=== PATIENT | female | born 1960 | race Hispanic/Latino ===

== ENCOUNTER 2018-06-23 07:25 | Outpatient (CLI) | payer OTHER ==
[~2018-06-23] VITALS: Ht 165.1 cm; Wt 68.9 kg
[2018-06-23 07:53] VITALS: BP 101/65
[2018-06-23 08:46] LABS: BASOPHILS % (AUTO) 0 % (0-10); EOSINOPHILS # (AUTO) 0.2 10^3/uL (0.0-0.3); EOSINOPHILS % (AUTO) 2 % (0-10); HEMATOCRIT 41 % (35-52); HEMOGLOBIN 13.5 G/DL (11.5-16.0); LYMPHOCYTES # (AUTO) 3.2 X 10^3 (1.0-4.0); LYMPHOCYTES % (AUTO) 37 % (12-44); MEAN CORPUSCULAR HEMOGLOBIN 28 PG (25-34); MEAN CORPUSCULAR HGB CONC 33 G/DL (32-36); MEAN CORPUSCULAR VOLUME 86 FL (80-99); MEAN PLATELET VOLUME 11.7 FL (7.4-10.4); MONOCYTES # (AUTO) 0.6 X 10^3 (0.0-1.0); MONOCYTES % (AUTO) 7 % (0-12); NEUTROPHILS # (AUTO) 4.7 X 10^3 (1.8-7.8); NEUTROPHILS % (AUTO) 54 % (42-75); PLATELET COUNT 219 10^3/uL (130-400); RED BLOOD COUNT 4.78 10^6/uL (4.35-5.85); RED CELL DISTRIBUTION WIDTH 14.2 % (10.0-14.5); WHITE BLOOD COUNT 8.7 10^3/uL (4.3-11.0)
[2018-06-23] MEDS ORDERED: FLUO10CA19 PO (09:02)
[2018-06-23] MEDS ORDERED: TOPI100T11 PO (09:02)
[2018-06-23 09:07] LABS: BILIRUBIN,URINE NEGATIVE (NEGATIVE); CLARITY,URINE CLEAR; COLOR,URINE YELLOW; GLUCOSE, URINE (UA) NEGATIVE (NEGATIVE); KETONES,URINE NEGATIVE (NEGATIVE); LEUKOCYTE ESTERASE ,URINE NEGATIVE (NEGATIVE); NITRITE,URINE NEGATIVE (NEGATIVE); PH,URINE 7 (5-9); PROTEIN,URINE NEGATIVE (NEGATIVE); UROBILINOGEN,URINE 1 MG/DL (NORMAL)
[2018-06-23 09:15] LABS: BACTERIA,URINE TRACE /HPF; WBC,URINE RARE /HPF
[2018-07-11] MEDS ORDERED: SULF1TAB35 PO (19:02)
[2018-07-11] MEDS ORDERED: HYDR-4226 PO (19:02)
== END 2018-06-23 08:30 | disposition home or self-care (01) ==
LOC: PREOP 07:25
PROVIDERS: ATTEND Obstetrics & Gynecology
DX: Z01.812 Encounter for preprocedural laboratory examination (principal); Z11.2 Encounter for screening for other bacterial diseases; N81.10 Cystocele, unspecified
CPT/HCPCS: 36415; 81000; 84703; 85025; 86850; 86900; 86901; 87081

== ENCOUNTER 2018-06-24 06:10 | Day surgery (SDC) | payer OTHER ==
[~2018-06-24] VITALS: Ht 165.1 cm; Wt 68.9 kg
[~2018-06-24 06:10] MED LIST: FLUO10CA19 PO; TOPI100T11 PO
[2018-06-24 06:30] VITALS: BP 99/56
[2018-06-24] MEDS ORDERED: ceFAZolin INJECTION 1,000 MG in NS (IVPB) 50 ML IV ONE (06:45)
[2018-06-24] MEDS ORDERED: metroNIDAZOLE 500MG/100ML IVPB 100 ML IV ONE (06:45)
[2018-06-24] MEDS ORDERED: fentaNYL INJECTION 100 MCG/2 ML AMP ONE ×2 (06:58→08:44)
[2018-06-24] MEDS ORDERED: MIDAZOLAM 2 MG/2 ML (VERSED) VIAL ONE (06:58)
[2018-06-24] MEDS ORDERED: LIDOCAINE PF 2% 2 ML (XYLOCAINE) VIAL ONE ×2 (06:58→07:01)
[2018-06-24] MEDS ORDERED: LACTATED RINGERS 1,000 ML IV ONE (06:58)
[2018-06-24] MEDS ORDERED: proPOfol 200 MG/20 ML (DIPRIVAN) VIAL IV ONE (06:58)
[2018-06-24] MEDS ORDERED: ROCURONIUM 10 MG/ML 5 ML SYRINGE IV ONE (06:58)
[2018-06-24] MEDS ORDERED: SEVOFLURANE (ULTANE) 15 ML INHAL SOLN ONE ×10 (06:58→10:07)
[2018-06-24] MEDS ORDERED: ONDANSETRON 4 MG/2 ML (SDV) Z0FRAN ONE (06:58)
[2018-06-24] MEDS ORDERED: DEXAMETHASONE 10 MG/ML (DECADRON) 1 ML VIAL ONE (06:59)
[2018-06-24] MEDS: LACTATED RINGERS 1,000 ML IV PRN ×5 (07:00→21:43)
[2018-06-24] MEDS ORDERED: VASOPRESSIN INJECTION 20 UNIT/ML VIAL ONE (07:01)
[2018-06-24] MEDS ORDERED: NS (IVPB) 100 ML ONE (07:01)
[2018-06-24] MEDS ORDERED: BUP/EPI 0.5% 1:200,000 (SENSORCAINE) 30 ML VIAL ONE (07:01)
--- NOTE | 2018-06-24 07:41 | Progress Note-Pre Operative ---
Pre-Operative Progress Note H&P Reviewed The H&P was reviewed, patient examined and no changes noted. Date Seen by Provider: Jun 24, 2018 Time Seen by Provider: 07:35 Date H&P Reviewed: Jun 24, 2018 Time H&P Reviewed: 07:30 Pre-Operative Diagnosis: incomplete genital prolapse, stress incontinence RICK BEAULIEU DO Jun 24, 2018 07:40
[2018-06-24] MEDS ORDERED: ESTRADIOL VAGINAL CREAM 42.5 GM (ESTRACE) VG ONE (08:40)
[2018-06-24] MEDS ORDERED: LACTATED RINGERS 0 ML IV ONE (09:20)
[2018-06-24] MEDS ORDERED: NEOSTIGMINE 1 MG/ML 5 ML SYRINGE ONE (10:03)
[2018-06-24] MEDS ORDERED: GLYCOPYRROLATE 0.2 MG/ML (ROBINUL) 2 ML VIAL ONE (10:04)
[2018-06-24] MEDS ORDERED: ANTACID SUSP 30 ML UDC (MYLANTA) PO PRN ×2 (10:15→14:15)
[2018-06-24] MEDS ORDERED: DOCUSATE SODIUM 100 MG (COLACE) CAP PO PRN (10:15)
[2018-06-24] MEDS ORDERED: SIMETHICONE 80 MG (MYLICON) CHEW PO PRN (10:15)
[2018-06-24] MEDS ORDERED: ONDANSETRON 4 MG/2 ML (SDV) Z0FRAN IV PRN (10:15)
--- NOTE | 2018-06-24 10:15 | Operative Report ---
Operative Report Date of Procedure/Surgery Jun 24, 2018 Surgeon (s) RICK BEAULIEU DO Cattle Trader (s): MARITZA Quijano Post-Operative Diagnosis Incomplete genital prolapse/uterovaginal prolapse, stress incontinence Procedure Performed RaTh, BSO, anterior colporrhaphy, perineorrhaphy, solyx PV sling Description of Procedure Anesthesia Type: General Estimated blood loss (mL): 500 Specimen(s) collected/removed uterus tubes and ovaries Description of the Procedure After informed consent was obtained, patient was taken into the operating room where general anesthetic was found to be adequate. She was prepped and draped in the usual sterile fashion in the dorsal lithotomy position. Exam under anesthesia revealed 2-3 + uterine descensus. There is a large cystocele, a gapy introitus and 2+ rectocele and > 45 degree rotation of the urethra. A Steele catheter was placed. A speculum was placed in the vagina. The cervix was visualized and the anterior lip was grasped with a sharp toothed tenaculum. The uterus was sounded and depth was approximately 6.5 centimeters. I placed the Maricruz device. And then set the Maricruz to 6.5 cm and a 3.5 cm collar was advanced over the cervix. I inserted the Maricruz without difficulty, inflating the balloon and securing it around the fornix of the cervix. The collar was then secured with sutures at 12 o'clock. Attention was then turned to the patient's abdomen. A supraumbilical incision was made about 12 mm. A Veress needle was inserted and intraabdominal placement was confirmed with a drop in pressure and the saline drop test. I then insufflated the abdomen to a maximum of 15 mmHg with warmed CO2 gas. I then placed a 12 mm trocar and then the Da Elvin camera and intraperitoneal placement was confirmed. I then determined the procedure could be continued robotically. The first robotic port was placed about 12 cm lateral to the right and left of the umbilical placement and slightly inferior. These are both 8 mm trocars. These were placed under direct visualization of the laparoscope. 0.25% Marcaine was injected prior to placement of all trocars. When all placements were confirmed, the patient was placed in steep Trendelenburg allowing adequate visualization and the robot was brought in for docking. The docking was accomplished without difficulty. A survey of the pelvis confirmed the above mentioned findings. I then took over the command of the robot utilizing the Bipolar forceps and monopolar astrid. I was able to visualize the round ligaments bilaterally and grasped them and cauterized with bipolar cautery and then cut with my astrid. At this point, I then did bilateral salpingoophorectomy. I grasped the infundibulopelvic ligaments bilaterally, transected and incised. I then moved to the uteroovarian ligaments. I sealed the vessel and transected bilaterally using the bipolar cautery and then cut with the monopolar astrid. I then moved my dissection to the posterior leaves of the broad ligament. I dissected the posterior leaves of the broad ligament off the uterine arteries skeletonizing them bilaterally. I then took a second clamp with the bipolar cautery and with the astrid, transected the vessels away from the lateral aspect to the cervical stroma. I dissected the anterior peritoneum off the lower uterine segment. I continually pushed the bladder back and I took excessively great care and I was eventually able to dissect the vesicouterine peritoneum off the lower uterine segment. I then dissected in a V fashion towards the midline between the uterosacral ligaments. This allowed me to skeletonize the uterine vessels bilaterally. The balloon on the MARICRUZ was insufflated. This allowed me to see the MARICRUZ circumferentially. I then performed a colpotomy anteriorly and then amputate with cervix away from the vaginal fornix. I then continued the colpotomy circumferentially. Once this was performed, the pharmacy innovation assistant removed the uterus through the vagina. A sponge was left in the vagina to maintain pneumoperitoneum. I then began closure of the vaginal cuff. The uterus was left in the vagina to maintain pneumoperitoneum. I closed the apices of the vaginal cuff with 2-0 Vicryl V lock sutures with a colposuspension through the uterosacral ligaments. This suspended the apices of the vaginal cuff. I extended this to the midline from both sides and overlapped the V lock sutures in the midline. an additional 2-0 Vicryl suture was used for a culdoplasty, closing off the enterocele space. Excellent closure is noted and hemostasis is achieved. All the needles were removed from the patient's abdomen. Now, the robotic instruments were removed and the robot was docked back to laparoscopy. The pelvis was irrigated. At this point I repeated an exam of the pelvis laparoscopically. The pelvis was irrigated. There was no active bleeding noted. Bilateral ureters were seen the entire time during the surgery and were peristalsing. The trocars were removed under direct visualization. The laparoscopic sites were visualized and found to be hemostatic. The trocar sites were injected with 0.25% Marcaine. I closed the 12 mm fascial incisions with a figure of 8 stitch of 0 Vicryl and then the skin incisions were closed with 4-0 Monocryl in a subcuticular fashion and then with Dermabond. Op sites were placed over the incision sites. The instruments were removed from the vagina and I noted there were no abrasions. Sponge, lap, needle and instrument counts correct times two. Attention was now turned to the vagina. The patient had been repositioned for the Anterior repair and the sling. The anterior vaginal epithelium was injected with dilute vasopressin for hydrodissection. I then made a midline incision and dissected the epithelium off the underlying fascia with the Metzenbaum scissors and then plicated the fascia in the midline reducing the cystocele. I then excised the excess vaginal epithelium and then closed the defect with 2-0 Vicryl in a continuous fashion. Now, A 1 cm incision was made in the suburethral space with a scalpel about 1.5 cm from the urethral meatus. I dissected bilaterally to the obturator membranes and then inserted the Solyx bilaterally and then tightened under the midurethra. I did a cystoscopy which was negative. There was bilateral urethral efflux of urine. I then kept 300 ml in the bladder and did a Cred. There was minimal leakage. The sling laid gently under the urethra and was not too tight. The incision was closed with 4-0 Monocryl in a running fashion. Steele was reinserted. I now repaired the rectocele. The posterior vaginal epithelium was injected with dilute vasopressin and a midline incision was made with the scalpel. I then undermined the epithelium with the Suresh scissors and then incised in the midline and dissected the vaginal epithelium off the fascia. I now repaired the rectocele with two layers of interrupted 2-0 vicryl mattress type stitches reducing the rectocele. I now incised the excess vaginal tissue and closed the defect with 2-0 vicryl in a running fashion. A large pyramidal incision was made in the perineum as a perineorrhaphy and this was closed in standard fashion. \ There was good hemostasis and the vagina was packed with Estrace cream and vaginal packing. SCDs were used frt DVT prophylaxis. Ancef and Flagyl were give preoperatively. Findings of the Procedure 2-3+ descensus, 3-4+ cystocele, 2+ rectocele Allergies and Home Medications Allergies Coded Allergies: No Known Drug Allergies (Unverified , 06/23/18) Home Medications Fluoxetine HCl 10 Mg Capsule, 10 MG PO DAILY, (Reported) Hydrocodone Bit/Acetaminophen 1 Ea Tablet, 1 EA PO Q6H PRN for PAIN-MODERATE TO SEVERE Prescribed by: RICK BEAULIEU on 06/25/18 1255 Ibuprofen 600 Mg Tablet, 600 MG PO Q6H PRN for PAIN-MILD Prescribed by: RICK BEAULIEU on 06/25/18 1255 Simethicone 80 Mg Tab.chew, 40 MG PO TID PRN for INDIGESTION Prescribed by: RICK BEAULIEU on 06/25/18 1255 Topiramate 100 Mg Tablet, 100 MG PO HS, (Reported) Patient Home Medication List Home Medication List Reviewed: Yes RICK BEAULIEU DO Jun 24, 2018 10:15
[2018-06-24] MEDS ORDERED: PHENYLEPHRINE 100 MCG/ML 10 ML (ANESTHESIA) SYR ONE (10:24)
[2018-06-24] MEDS ORDERED: ESTRADIOL 0.1 MG PATCH (CLIMARA) TD ONE (10:30)
[2018-06-24] MEDS ORDERED: HYDROmorphone 2 MG/ML VIAL (DILAUDID) IV ONE (10:30)
[2018-06-24] MEDS ORDERED: morphine INJ 10 MG/ML 1ML (SYR OR VIAL) IVP ONE (10:30)
[2018-06-24] MEDS ORDERED: ONDANSETRON 4 MG/2 ML (SDV) Z0FRAN IVP PRN (10:30)
[2018-06-24] MEDS: KETOROLAC 30 MG/ML VIAL IV PRN ×2 (10:32→20:00)
[2018-06-24 11:30] VITALS: BP 96/62
--- NOTE | 2018-06-24 11:51 | Anesthesia-General Post-Op ---
General Patient Condition Mental Status/LOC: Same as Preop Cardiovascular: Satisfactory Nausea/Vomiting: Absent Respiratory: Satisfactory Pain: Controlled Complications: Absent Post Op Complications Complications None Follow Up Care/Instructions Patient Instructions None needed. Anesthesia/Patient Condition Patient Condition Patient is doing well, no complaints, stable vital signs, no apparent adverse anesthesia problems. No complications reported per nursing. LOUIE FERNANDO CRNA Jun 24, 2018 11:51
[2018-06-24] MEDS ORDERED: HYDROmorphone 2 MG/ML VIAL (DILAUDID) IV PRN (13:30)
[2018-06-24] MEDS ORDERED: PATIENT MAY USE OWN MEDS, ALL MC SCH (13:30)
[2018-06-24 13:48] VITALS: BP 93/60
[2018-06-24] MEDS ORDERED: FLUoxetine HCL 20 MG (PROzac) CAP PO SCH (14:00)
[2018-06-24] MEDS ORDERED: CHLORASEPTIC LOZENGE MM PRN (14:15)
[2018-06-24] MEDS ORDERED: D5 LR IV SOLUTION 1,000 ML IV SCH (15:45)
[2018-06-24 17:25] VITALS: BP 104/55
[2018-06-24 20:30] VITALS: BP 102/64
[2018-06-24] MEDS ORDERED: NON-FORMULARY MEDICATION 1 EA EA (Topiramate 100 MG) PO SCH (21:00)
[2018-06-24] MEDS ORDERED: toPIRamate 100 MG (TOPAMAX) TAB PO SCH (21:00)
[2018-06-24] MEDS: HYDROcodone/APAP 7.5 MG/325 MG (LORTAB, LORCET PLUS) TABLET PO PRN (21:52)
[2018-06-25 00:30] VITALS: BP 86/49
[2018-06-25] MEDS ORDERED: IBUPROFEN 600 MG (MOTRIN) TAB PO PRN (03:00)
[2018-06-25] MEDS: HYDROcodone/APAP 7.5 MG/325 MG (LORTAB, LORCET PLUS) TABLET PO PRN (03:31)
[2018-06-25 04:01] VITALS: BP 78/44
[2018-06-25] MEDS: LACTATED RINGERS 1,000 ML IV PRN (04:19)
[2018-06-25 08:00] VITALS: BP 73/46
[2018-06-25] MEDS ORDERED: FLUoxetine HCL 10 MG (PROzac) CAPSULE/TABLET PO SCH (09:00)
[2018-06-25] MEDS ORDERED: NS 1000 ML IV BAG IV ONE (09:15)
--- NOTE | 2018-06-25 09:27 | Physician Progress Note ---
Progress Note Assessment/Plan Date Seen by Provider: Jun 25, 2018 Time Seen by Provider: 09:20 Events since last exam decreased/borderline urine output since last night. This has improved this am. will monitor for urinary retention. Encourage ambulation and advanced diet. Assessment/Plan POD #1 s/p RaTH, BSO, anterior/posterior colporrhaphy, PV sling, post op urinary retention. Plan dc home if able to void. Otherwise will teach straight cath and send home Vitals Last set of Vitals Signs Vital Signs Date Time Temp Pulse Resp B/P (MAP) Pulse Ox O2 Delivery O2 Flow Rate FiO2 06/25/18 04:01 97.7 76 16 78/44 (55) 97 06/24/18 20:30 Room Air I&O I&O Intake and Output 06/25/18 00:00 Intake Total 3310 ml Output Total 1350 ml Balance 1960 ml Intake Oral 1050 ml IV Total 2260 ml Output Urine Total 900 ml Estimated Blood Loss 450 ml RICK BEAULIEU DO Jun 25, 2018 09:27
[2018-06-25 09:46] LABS: BASOPHILS % (AUTO) 0 % (0-10); EOSINOPHILS % (AUTO) 0 % (0-10); HEMATOCRIT 27 % (35-52); LYMPHOCYTES # (AUTO) 3.7 X 10^3 (1.0-4.0); LYMPHOCYTES % (AUTO) 18 % (12-44); MEAN CORPUSCULAR HEMOGLOBIN 30 PG (25-34); MEAN CORPUSCULAR HGB CONC 33 G/DL (32-36); MEAN CORPUSCULAR VOLUME 89 FL (80-99); MEAN PLATELET VOLUME 11.7 FL (7.4-10.4); MONOCYTES # (AUTO) 1.4 X 10^3 (0.0-1.0); MONOCYTES % (AUTO) 7 % (0-12); NEUTROPHILS # (AUTO) 15.7 X 10^3 (1.8-7.8); NEUTROPHILS % (AUTO) 76 % (42-75); PLATELET COUNT 162 10^3/uL (130-400); RED BLOOD COUNT 3.04 10^6/uL (4.35-5.85); RED CELL DISTRIBUTION WIDTH 14.1 % (10.0-14.5); WHITE BLOOD COUNT 20.7 10^3/uL (4.3-11.0)
[2018-06-25 10:15] LABS: BAND NEUTROPHILS 0 %; BASOPHILS % (MANUAL) 0 %; EOSINOPHILS % (MANUAL) 0 %; LYMPHOCYTES % (MANUAL) 19 %; MONOCYTES % (MANUAL) 3 %; NEUTROPHILS % (MANUAL) 78 %; RBC MORPH NORMAL
[2018-06-25 12:00] VITALS: BP 133/68
[2018-06-25] MEDS ORDERED: SIME80TA16 PO (12:55)
[2018-06-25] MEDS ORDERED: IBUP-844 PO (12:55)
[2018-06-25] MEDS ORDERED: HYDR-34 PO (12:55)
--- NOTE | 2018-06-25 12:58 | Discharge Inst-Women's Service ---
Discharge Inst-Women's Serv Depart Medication/Instructions New, Converted or Re-Newed RX: RX on Chart Instructions nothing in the vagina no lifting over 25 lbs expect light bleeding, spotting for up to 10 days. Final Diagnosis incomplete genital prolapse stress incontinence Consults/Follow Up Additional Follow Up: Yes (1 week with Briana for post op and 10-12 weeks with briana for post op) Activity Activity: Activity as Tolerated Driving Instructions: No Driving for 1 Week Nothing Inside Vagina: No Douching, No [place], No Tampons Diet Discharge Diet: No Restrictions Symptoms to Report to DrMarilin: Swelling Increased, Bleeding Excessive, Pain Increased, Fever Over 101 Degrees F, Vaginal Bleeding Increase, Cramps in Feet or Legs, Vaginal Discharge Foul For Any Problems or Questions: Contact Your Physician Skin/Wound Care Infection Signs and Symptoms: Increased Redness, Foul Odor of Wound, Increased Drainage, Skin Itchy or Has a Rash, Increased Swelling, Temperature Above 101 F Operative Area Clean and Dry: You May Remove Bandage (3 days post op) Stitches/Valeria/Dermabond: Dermabond Bathing Instructions: RICK Matthews DO Jun 25, 2018 12:58
--- NOTE | 2018-06-25 13:57 | Anesthesia-General Post-Op ---
General Patient Condition Mental Status/LOC: Same as Preop Cardiovascular: Satisfactory Nausea/Vomiting: Absent Respiratory: Satisfactory Pain: Controlled Complications: Absent Post Op Complications Complications None Follow Up Care/Instructions Patient Instructions None needed. Anesthesia/Patient Condition Patient Condition Patient is doing well, no complaints, stable vital signs, no apparent adverse anesthesia problems. No complications reported per nursing. LOUIE FERNANDO CRNA Jun 25, 2018 13:57
[2018-07-11] MEDS ORDERED: HYDR-4226 PO (19:02)
[2018-07-11] MEDS ORDERED: SULF1TAB35 PO (19:02)
== END 2018-06-25 16:30 | disposition home or self-care (01) ==
LOC: SDC 06:10 → WS 11:23 → SDC 06-25 16:30
PROVIDERS: ATTEND Obstetrics & Gynecology
DX: N81.2 Incomplete uterovaginal prolapse (principal); N80.0 Endometriosis of uterus; D25.1 Intramural leiomyoma of uterus; N83.8 Other noninflammatory disorders of ovary, fallopian tube and broad ligament; N83.01 Follicular cyst of right ovary; N39.3 Stress incontinence (female) (male); R39.14 Feeling of incomplete bladder emptying; F17.210 Nicotine dependence, cigarettes, uncomplicated; G40.909 Epilepsy, unspecified, not intractable, without status epilepticus; Z79.899 Other long term (current) drug therapy; Z78.0 Asymptomatic menopausal state
CPT/HCPCS: 36415; 85007; 85027; 88307; 93005; 94664

== ENCOUNTER → 2018-07-11 | Emergency (ER) | payer SELFPAY ==
[~2018-07-11] VITALS: Ht 165.1 cm; Wt 68.9 kg
[~2018-07-11] MED LIST changes: +CATHETER FLUSH 10 ML SYR IV PRN; +HYDR-34 PO; +HYDR-4226 PO; +IBUP-844 PO; +IOHEXOL 350 MG/ML 100 ML (OMNIPAQUE 350) VIAL IV ONE; +KETOROLAC 30 MG/ML VIAL IVP ONE; +NS 250 ML (IVPB) BAG IV ONE; +NS IV 1000 ML 1,000 ML IV SCH; +SIME80TA16 PO; +SULF1TAB35 PO; +cefTRIAXone FOR IV USE 1,000 MG in NS (IVPB) 50 ML IV ONE; +fentaNYL INJECTION 100 MCG/2 ML AMP IVP ONE
--- NOTE | 2018-07-11 17:38 | ED Abdominal Pain ---
General Chief Complaint: Abdominal/GI Problems Stated Complaint: ABD PAIN STARTED YESTERDAY,BLOATED,CHILLS,FEVER Source of Information: Patient Exam Limitations: No Limitations History of Present Illness Date Seen by Provider: Jul 11, 2018 Time Seen by Provider: 17:35 Initial Comments To ER with left-sided suprapubic abdominal pain that began yesterday, abdominal distention, chills. She was here for a robotic assisted total hysterectomy, bilateral salpingo-oophorectomy, anterior colporrhaphy, perineorrhaphy, solyx PV sling on 06/24/18. She also reports vaginal discharge and bleeding. Last bowel movement was this morning. She has had no difficulties with eating or drinking. Severity/Quality: Moderate Location: Suprapubic Radiation: No Radiation Associated Symptoms: Fever/Chills; No Nausea/Vomiting Allergies and Home Medications Allergies Coded Allergies: No Known Drug Allergies (Unverified , 06/23/18) Home Medications Fluoxetine HCl 10 Mg Capsule, 10 MG PO DAILY, (Reported) Hydrocodone Bit/Acetaminophen 1 Ea Tablet, 1 EA PO Q6H PRN for PAIN-MODERATE TO SEVERE Prescribed by: RICK BEAULIEU on 06/25/18 1255 Hydrocodone/Acetaminophen 1 Each Tablet, 1 EACH PO Q6H PRN for PAIN-MODERATE Prescribed by: REGINO MOISE on 07/11/18 190 Ibuprofen 600 Mg Tablet, 600 MG PO Q6H PRN for PAIN-MILD Prescribed by: RICK BEAULIEU on 06/25/18 1255 Simethicone 80 Mg Tab.chew, 40 MG PO TID PRN for INDIGESTION Prescribed by: RICK BEAULIEU on 06/25/18 1255 Sulfamethoxazole/Trimethoprim 1 Each Tablet, 1 EACH PO BID Prescribed by: REGINO MOISE on 07/11/18 190 Topiramate 100 Mg Tablet, 100 MG PO HS, (Reported) Patient Home Medication List Home Medication List Reviewed: Yes Review of Systems Review of Systems Constitutional: see HPI EENTM: No Symptoms Reported Respiratory: No Symptoms Reported Cardiovascular: No Symptoms Reported Gastrointestinal: See HPI, Abdominal Pain; Denies Constipated, Denies Diarrhea , Denies Nausea Genitourinary: See HPI Musculoskeletal: no symptoms reported Skin: no symptoms reported Psychiatric/Neurological: No Symptoms Reported Endocrine: No Symptoms Reported Hematologic/Lymphatic: No Symptoms Reported Past Jjvghsu-Xxysyl-Fgwiwg Hx Patient Social History Type Used: Cigarettes Recent Foreign Travel: No Contact w/Someone Who Travel: No Recent Hopitalizations: No Seasonal Allergies Seasonal Allergies: No Past Medical History Surgeries: No Respiratory: No Cardiac: No Neurological: Yes (last seizure 3 months ago) Reproductive Disorders: Yes (genital prolapse) Genitourinary: No (genital prolapse, cystocele) Gastrointestinal: No Musculoskeletal: No Endocrine: No HEENT: No Cancer: No Psychosocial: Yes Depression Integumentary: No Blood Disorders: Yes (hx of anemia) Family Medical History Hypertension 19 MOTHER Myocardial infarction G8 BROTHER Seizure disorder G8 BROTHER Physical Exam Vital Signs Vital Signs - First Documented 07/11/18 17:40 Temp 97.2 Pulse 77 Resp 16 B/P (MAP) 119/73 (88) Pulse Ox 100 Capillary Refill : Height/Weight/BMI Height: 5'5.00" Weight: 152lbs. 0.0oz. 68.014686un; 25.3 BMI Method: General Appearance: WD/WN, no apparent distress HEENT: PERRL/EOMI, normal ENT inspection Neck: non-tender, full range of motion Respiratory: no respiratory distress, no accessory muscle use Cardiovascular: regular rate, rhythm, no murmur Gastrointestinal: normal bowel sounds, soft, tenderness (Suprapubic left. Trocar insertion sites are still glued, clean dry and intact without drainage or erythema surrounding them.) Extremities: normal range of motion, non-tender Neurologic/Psychiatric: alert, normal mood/affect, oriented x 3 Skin: normal color, warm/dry Progress/Results/Core Measures Results/Orders Lab Results Laboratory Tests Test 07/11/18 17:33 07/11/18 18:09 Range/Units White Blood Count 9.9 4.3-11.0 10^3/uL Red Blood Count 3.84 L 4.35-5.85 10^6/uL Hemoglobin 11.4 L 11.5-16.0 G/DL Hematocrit 34 L 35-52 % Mean Corpuscular Volume 89 80-99 FL Mean Corpuscular Hemoglobin 30 25-34 PG Mean Corpuscular Hemoglobin Concent 33 32-36 G/DL Red Cell Distribution Width 14.2 10.0-14.5 % Platelet Count 318 130-400 10^3/uL Mean Platelet Volume 10.8 H 7.4-10.4 FL Neutrophils (%) (Auto) 55 42-75 % Lymphocytes (%) (Auto) 32 12-44 % Monocytes (%) (Auto) 8 0-12 % Eosinophils (%) (Auto) 4 0-10 % Basophils (%) (Auto) 1 0-10 % Neutrophils # (Auto) 5.5 1.8-7.8 X 10^3 Lymphocytes # (Auto) 3.2 1.0-4.0 X 10^3 Monocytes # (Auto) 0.8 0.0-1.0 X 10^3 Eosinophils # (Auto) 0.4 H 0.0-0.3 10^3/uL Basophils # (Auto) 0.1 0.0-0.1 10^3/uL Sodium Level 141 135-145 MMOL/L Potassium Level 4.1 3.6-5.0 MMOL/L Chloride Level 109 H 98-107 MMOL/L Carbon Dioxide Level 25 21-32 MMOL/L Anion Gap 7 5-14 MMOL/L Blood Urea Nitrogen 13 7-18 MG/DL Creatinine 0.81 0.60-1.30 MG/DL Estimat Glomerular Filtration Rate > 60 BUN/Creatinine Ratio 16 Glucose Level 102 70-105 MG/DL Calcium Level 9.4 8.5-10.1 MG/DL Corrected Calcium 9.2 8.5-10.1 MG/DL Total Bilirubin 0.5 0.1-1.0 MG/DL Aspartate Amino Transf (AST/SGOT) 25 5-34 U/L Alanine Aminotransferase (ALT/SGPT) 22 0-55 U/L Alkaline Phosphatase 61 40-136 U/L Total Protein 7.5 6.4-8.2 GM/DL Albumin 4.3 3.2-4.5 GM/DL Lipase 35 8-78 U/L Urine Color YELLOW Urine Clarity VERY CLOUDY H Urine pH 8 5-9 Urine Specific [place] 1.015 L 1.016-1.022 Urine Protein 2+ H NEGATIVE Urine Glucose (UA) NEGATIVE NEGATIVE Urine Ketones NEGATIVE NEGATIVE Urine Nitrite NEGATIVE NEGATIVE Urine Bilirubin NEGATIVE NEGATIVE Urine Urobilinogen NORMAL NORMAL MG/DL Urine Leukocyte Esterase 3+ H NEGATIVE Urine RBC (Auto) 3+ H NEGATIVE Urine RBC 25-50 H /HPF Urine WBC 25-50 H /HPF Urine Squamous Epithelial Cells 5-10 /HPF Urine Crystals PRESENT H /LPF Urine Amorphous Sediment LARGE ELISEO PHOSPHATE H /LPF Urine Bacteria FEW H /HPF Urine Casts NONE /LPF Urine Mucus NEGATIVE /LPF Urine Culture Indicated YES My Orders Orders - REGINO MOISE WATER SAFETY TEACHER Cbc With Automated Diff (07/11/18 17:22) Comprehensive Metabolic Panel (07/11/18 17:22) Lipase (07/11/18 17:22) Ua Culture If Indicated (07/11/18 17:22) Iv Heplock-Insert (Order) (07/11/18 17:22) Fentanyl Injection (Sublimaze Injection (07/11/18 17:45) Ct Abdomen/Pelvis W (07/11/18 17:34) Ns Iv 1000 Ml (Sodium Chloride 0.9%) (07/11/18 17:45) Iohexol Injection (Omnipaque 350 Mg/Ml 1 (07/11/18 18:15) Sodium Chloride Flush (Catheter Flush Sy (07/11/18 18:15) Ns (Ivpb) (Sodium Chloride 0.9%) (07/11/18 18:15) Pharmacy Communication (Pharmacy Communi (07/11/18 18:07) Urine Culture (07/11/18 18:09) Ceftriaxone For Iv Use (Rocephin For I (07/11/18 18:45) Ketorolac Injection (Toradol Injection) (07/11/18 18:45) Medications Given in ED Current Medications Medications Dose Ordered Sig/Buck Route Start Time Stop Time Status Last Admin Dose Admin Ceftriaxone Sodium 1000 mg/ Sodium Chloride 50 ml @ 100 mls/hr ONCE ONCE IV 07/11/18 18:45 07/11/18 19:14 07/11/18 19:01 100 MLS/HR Fentanyl Citrate 50 mcg ONCE ONCE IVP 07/11/18 17:45 07/11/18 17:46 DC 07/11/18 18:07 50 MCG Iohexol 100 ml ONCE ONCE IV 07/11/18 18:15 07/11/18 18:16 DC 07/11/18 18:24 100 ML Ketorolac Tromethamine 30 mg ONCE ONCE IVP 07/11/18 18:45 07/11/18 18:46 DC 07/11/18 19:01 30 MG Sodium Chloride 10 ml NEEDED PRN IV 07/11/18 18:15 07/11/18 18:24 10 ML Sodium Chloride 250 ml ONCE ONCE IV 07/11/18 18:15 07/11/18 18:16 DC 07/11/18 18:24 80 ML Vital Signs/I&O 07/11/18 17:40 Temp 97.2 Pulse 77 Resp 16 B/P (MAP) 119/73 (88) Pulse Ox 100 Progress Progress Note : Progress Note NAME: FAITH RIVERA [facility] REC#: [id number] PT STATUS: REG ER : 1960 PHYSICIAN: REGINO MOISE WATER SAFETY TEACHER ADMIT DATE: 07/11/18/ER Draft Date of Exam:07/11/18 CT ABDOMEN/PELVIS W PROCEDURE: CT abdomen and pelvis with contrast. TECHNIQUE: Multiple contiguous axial images were obtained through the abdomen and pelvis after administration of intravenous contrast. INDICATION: Lower abdominal pain and vaginal discharge. FINDINGS: There is mild low density throughout the liver without focal hepatic or splenic abnormality identified. Gallbladder, pancreas, and adrenal glands are also unremarkable. There is no evidence of renal lesion. No free fluid is seen within the abdomen or pelvis and there is no evidence of organized fluid collection to suggest an abscess. Partially opacified urinary bladder is unremarkable. No vaginal fluid collection is seen. IMPRESSION: Fatty infiltration of the liver without other evidence of acute abnormality in the abdomen or pelvis. Dictated on workstation # [id number] Dict: 07/11/18 1832 Trans: 07/11/18 1857 [id number] Interpreted by: KATHY BAUM MD Electronically signed by: Departure Communication (Admissions) External pelvic exam done with Paris MONROY at the bedside. There was not an internal pelvic exam/speculum exam done. At the perineal suture line there was some small amount of purulent discharge. A culture of this was collected and sent to lab. Impression Primary Impression: Abdominal pain Additional Impression: Urinary tract infection Disposition: 01 HOME, SELF-CARE Condition: Stable Departure-Patient Inst. Decision time for Depature: 18:46 Referrals: [facility] (PCP/Family) Primary Care Physician Patient Instructions: Urinary Tract Infection, Adult (DC) Add. Discharge Instructions: 1. Pain medication as directed 2. Antibiotics as directed 3. Follow-up with your doctor next week 4. Return to ER for any worsening. All discharge instructions reviewed with patient and/or family. Voiced understanding. Scripts Sulfamethoxazole/Trimethoprim (Bactrim Ds Tablet) 1 Each Tablet 1 EACH PO BID, #10 TAB Prov: REGINO MOISE APRN 07/11/18 Hydrocodone/Acetaminophen ([place] 5-325 Tablet) 1 Each Tablet 1 EACH PO Q6H PRN for PAIN-MODERATE MDD 10, #10 TAB Prov: REGINO MOISE APRN 07/11/18 Copy Copies To 1: RICK BEAULIEU PETER J APRN Jul 11, 2018 17:38
[2018-07-11 17:44] LABS: BASOPHILS # (AUTO) 0.1 10^3/uL (0.0-0.1); BASOPHILS % (AUTO) 1 % (0-10); EOSINOPHILS # (AUTO) 0.4 10^3/uL (0.0-0.3); EOSINOPHILS % (AUTO) 4 % (0-10); HEMATOCRIT 34 % (35-52); HEMOGLOBIN 11.4 G/DL (11.5-16.0); LYMPHOCYTES # (AUTO) 3.2 X 10^3 (1.0-4.0); LYMPHOCYTES % (AUTO) 32 % (12-44); MEAN CORPUSCULAR HEMOGLOBIN 30 PG (25-34); MEAN CORPUSCULAR HGB CONC 33 G/DL (32-36); MEAN CORPUSCULAR VOLUME 89 FL (80-99); MEAN PLATELET VOLUME 10.8 FL (7.4-10.4); MONOCYTES # (AUTO) 0.8 X 10^3 (0.0-1.0); MONOCYTES % (AUTO) 8 % (0-12); NEUTROPHILS # (AUTO) 5.5 X 10^3 (1.8-7.8); NEUTROPHILS % (AUTO) 55 % (42-75); PLATELET COUNT 318 10^3/uL (130-400); RED BLOOD COUNT 3.84 10^6/uL (4.35-5.85); RED CELL DISTRIBUTION WIDTH 14.2 % (10.0-14.5); WHITE BLOOD COUNT 9.9 10^3/uL (4.3-11.0)
[2018-07-11 18:06] LABS: ALANINE AMINOTRANSFERASE 22 U/L (0-55); ALBUMIN 4.3 GM/DL (3.2-4.5); ALKALINE PHOSPHATASE 61 U/L (40-136); BILIRUBIN,TOTAL 0.5 MG/DL (0.1-1.0); BUN/CREATININE RATIO 16; CALCIUM 9.4 MG/DL (8.5-10.1); CARBON DIOXIDE 25 MMOL/L (21-32); CHLORIDE 109 MMOL/L (98-107); CREATININE SERUM 0.81 MG/DL (0.60-1.30); GFR ESTIMATED > 60; GLUCOSE 102 MG/DL (70-105); LIPASE 35 U/L (8-78); POTASSIUM 4.1 MMOL/L (3.6-5.0); SODIUM 141 MMOL/L (135-145); TOTAL PROTEIN 7.5 GM/DL (6.4-8.2)
[2018-07-11 18:15] LABS: BILIRUBIN,URINE NEGATIVE (NEGATIVE); CLARITY,URINE VERY CLOUDY; COLOR,URINE YELLOW; GLUCOSE, URINE (UA) NEGATIVE (NEGATIVE); KETONES,URINE NEGATIVE (NEGATIVE); LEUKOCYTE ESTERASE ,URINE 3+ (NEGATIVE); NITRITE,URINE NEGATIVE (NEGATIVE); PH,URINE 8 (5-9); PROTEIN,URINE 2+ (NEGATIVE); UROBILINOGEN,URINE NORMAL (NORMAL)
[2018-07-11 18:22] LABS: AMORPHOUS SEDIMENT,UR LARGE AMOR PHOSPHATE /LPF; BACTERIA,URINE FEW /HPF; RBC,URINE 25-50 /HPF; WBC,URINE 25-50 /HPF
--- NOTE | 2018-07-11 18:58 | Diagnostic Imaging Report ---
PROCEDURE: CT abdomen and pelvis with contrast. TECHNIQUE: Multiple contiguous axial images were obtained through the abdomen and pelvis after administration of intravenous contrast. INDICATION: Lower abdominal pain and vaginal discharge. FINDINGS: There is mild low density throughout the liver without focal hepatic or splenic abnormality identified. Gallbladder, pancreas, and adrenal glands are also unremarkable. There is no evidence of renal lesion. No free fluid is seen within the abdomen or pelvis and there is no evidence of organized fluid collection to suggest an abscess. Partially opacified urinary bladder is unremarkable. No vaginal fluid collection is seen. IMPRESSION: Fatty infiltration of the liver without other evidence of acute abnormality in the abdomen or pelvis. Dictated by: Dictated on workstation # [id number]
[2018-07-11] MEDS: RX-HYDROCODONE/APAP 5/325 MG #4 TAB PK PO PRN (19:47)
[2018-07-11 19:48] VITALS: BP 120/75
== END | disposition home or self-care (01) ==
LOC: EDUNIT# 17:16 → ER 17:18
DX: N39.0 Urinary tract infection, site not specified (principal); F32.9 Major depressive disorder, single episode, unspecified; G40.909 Epilepsy, unspecified, not intractable, without status epilepticus; Z82.49 Family history of ischemic heart disease and other diseases of the circulatory system; Z87.448 Personal history of other diseases of urinary system; Z90.710 Acquired absence of both cervix and uterus
CPT/HCPCS: 36415; 74177; 80053; 81000; 83690; 85025; 87070; 87088; 87205

== ENCOUNTER 2021-01-19 09:29 | Emergency (ER) | payer SELFPAY ==
[~2021-01-19] VITALS: Ht 172.7 cm; Wt 74.0 kg
[~2021-01-19 09:29] MED LIST changes: -CATHETER FLUSH 10 ML SYR IV PRN; -FLUO10CA19 PO; +FLUO10CA31 PO; -IOHEXOL 350 MG/ML 100 ML (OMNIPAQUE 350) VIAL IV ONE; -KETOROLAC 30 MG/ML VIAL IVP ONE; -NS 250 ML (IVPB) BAG IV ONE; -NS IV 1000 ML 1,000 ML IV SCH; -cefTRIAXone FOR IV USE 1,000 MG in NS (IVPB) 50 ML IV ONE; -fentaNYL INJECTION 100 MCG/2 ML AMP IVP ONE
--- NOTE | 2021-01-19 09:53 | ED Chest Pain ---
General Chief Complaint: Chest Pain Stated Complaint: ABNORMAL EKG Source: patient, family Exam Limitations: language barrier (Patient's daughter acts as science interpreter) History of Present Illness Date Seen by Provider: Jan 19, 2021 Time Seen by Provider: 09:30 Initial Comments Patient is a 60-year-old female who presents to the emergency department this morning by private vehicle with a chief complaint of left-sided chest pain. Patient reportedly has had chest pain for 1 week. It is nonradiating however she does complain of a little numbness to her left arm and shoulder. She reportedly has history of a brother who from a heart attack at less than 50 years of age. Patient has no past medical history, does not take any medications. Patient occasionally smokes cigarettes. She denies nausea with the chest pain. She is slightly short of breath. No diaphoresis. Pain is made worse with exertion and with deep breath. According to the daughter the patient states that the pain has been present for 1 week constantly. Nothing makes the pain any better. She has not taken any med ications for the pain today. Reportedly the patient went to [facility] on Saturday where she had an EKG and laboratory studies drawn. The family was called today secondary to the patient's total CK being somewhat elevated and she was advised to come to the emergency department. She denies any recent illnesses such as fevers, chills, cough or congestion. No GI or complaints. Patient appears to be in no acute distress at this time. All other review of systems reviewed and negative except as stated above. Timing/Duration: 1 week, constant Severity/Quality: moderate (Currently rated at "6") Location: substernal Radiation: arms, shoulders (Left arm and shoulder) Activities at Onset: none Prior CP/Workup: no prior cardiac workup ASA po MESS ATTENDANT: No NTG SL MESS ATTENDANT: No Associated Symptoms: No back pain, No fever/chills; shortness of breath Allergies and Home Medications Allergies Coded Allergies: No Known Drug Allergies (Unverified , 06/23/18) Home Medications Fluoxetine HCl 10 Mg Capsule, 10 MG PO DAILY, (Reported) Hydrocodone Bit/Acetaminophen 1 Ea Tablet, 1 EA PO Q6H PRN for PAIN-MODERATE TO SEVERE Prescribed by: RICK BEAULIEU on 06/25/18 1255 Hydrocodone/Acetaminophen 1 Each Tablet, 1 EACH PO Q6H PRN for PAIN-MODERATE Prescribed by: REGINO MOISE on 07/11/181901 Ibuprofen 600 Mg Tablet, 600 MG PO Q6H PRN for PAIN-MILD Prescribed by: RICK BEAULIEU on 06/25/18 125 Simethicone 80 Mg Tab.chew, 40 MG PO TID PRN for INDIGESTION Prescribed by: RICK BEAULIEU on 06/25/18 125 Sulfamethoxazole/Trimethoprim 1 Each Tablet, 1 EACH PO BID Prescribed by: REGINO MOISE on 07/11/181901 Topiramate 100 Mg Tablet, 100 MG PO HS, (Reported) Patient Home Medication List Home Medication List Reviewed: Yes Review of Systems Review of Systems Constitutional: see HPI EENTM: No Symptoms Reported Cardiovascular: Chest Pain Gastrointestinal: No Symptoms Reported Genitourinary: No Symptoms Reported Musculoskeletal: no symptoms reported Skin: no symptoms reported All Other Systems Reviewed Negative Unless Noted: Yes Past Mobzgzt-Qkycyt-Bshado Hx Patient Social History Type Used: Cigarettes Recent Hopitalizations: No Seasonal Allergies Seasonal Allergies: No Past Medical History Surgeries: No Bladder Surgery, Hysterectomy Respiratory: No Cardiac: Yes Coronary Artery Disease, Hypotension Neurological: Yes (last seizure 3 months ago) Seizure Disorder Reproductive Disorders: Yes (genital prolapse) Genitourinary: No (genital prolapse, cystocele) Gastrointestinal: No Musculoskeletal: No Endocrine: No HEENT: No Cancer: No Psychosocial: Yes Depression Integumentary: No Blood Disorders: Yes (hx of anemia) Family Medical History Hypertension 19 MOTHER Myocardial infarction G8 BROTHER Seizure disorder G8 BROTHER Physical Exam Vital Signs Vital Signs - First Documented 01/19/21 09:33 Temp 35.0 Pulse 75 Resp 18 B/P (MAP) 152/85 (107) Pulse Ox 99 O2 Delivery Room Air Capillary Refill : Height, Weight, BMI Height: 5'5.00" Weight: 152lbs. 0.0oz. [id number]; 25.3 BMI Method:Stated General Appearance: No Apparent Distress, WD/WN HEENT: PERRL/EOMI Neck: Normal Inspection Respiratory: Lungs Clear, Normal Breath Sounds, No Accessory Muscle Use, No Respiratory Distress Cardiovascular: Regular Rate, Rhythm, No Murmur Gastrointestinal: Normal Bowel Sounds, Non Tender, Soft Extremity: Normal Inspection, Normal Range of Motion, Non Tender, No Pedal Edema Neurologic/Psychiatric: Alert, Oriented x3, No Motor/Sensory Deficits, Normal Mood/Affect Skin: Normal Color, Warm/Dry Progress/Results/Core Measures Results/Orders Lab Results Laboratory Tests Test 01/19/21 09:46 Range/Units White Blood Count 8.1 4.3-11.0 10^3/uL Red Blood Count 4.94 3.80-5.11 10^6/uL Hemoglobin 14.3 11.5-16.0 g/dL Hematocrit 44 35-52 % Mean Corpuscular Volume 89 80-99 fL Mean Corpuscular Hemoglobin 29 25-34 pg Mean Corpuscular Hemoglobin Concent 33 32-36 g/dL Red Cell Distribution Width 14.1 10.0-14.5 % Platelet Count 223 130-400 10^3/uL Mean Platelet Volume 11.2 9.0-12.2 fL Immature Granulocyte % (Auto) 0 % Neutrophils (%) (Auto) 62 42-75 % Lymphocytes (%) (Auto) 22 12-44 % Monocytes (%) (Auto) 11 0-12 % Eosinophils (%) (Auto) 5 0-10 % Basophils (%) (Auto) 1 0-10 % Neutrophils # (Auto) 5.0 1.8-7.8 10^3/uL Lymphocytes # (Auto) 1.8 1.0-4.0 10^3/uL Monocytes # (Auto) 0.9 0.0-1.0 10^3/uL Eosinophils # (Auto) 0.4 H 0.0-0.3 10^3/uL Basophils # (Auto) 0.0 0.0-0.1 10^3/uL Immature Granulocyte # (Auto) 0.0 0.0-0.1 10^3/uL Sodium Level 143 135-145 MMOL/L Potassium Level 3.8 3.6-5.0 MMOL/L Chloride Level 105 98-107 MMOL/L Carbon Dioxide Level 25 21-32 MMOL/L Anion Gap 13 5-14 MMOL/L Blood Urea Nitrogen 7 7-18 MG/DL Creatinine 0.78 0.60-1.30 MG/DL Estimat Glomerular Filtration Rate > 60 BUN/Creatinine Ratio 9 Glucose Level 95 70-105 MG/DL Calcium Level 9.5 8.5-10.1 MG/DL Total Creatine Kinase 216 H 29-168 U/L Creatine Kinase MB 0.7 <6.6 NG/ML Troponin I < 0.028 <0.028 NG/ML My Orders Orders - COLUMBA THOMAS MD Ed Iv/Invasive Line Start (01/19/21 09:53) Cbc With Automated Diff (01/19/21 09:53) Basic Metabolic Panel (01/19/21 09:53) Creatine Kinase (01/19/21 09:53) Creatine Kinase Mb (01/19/21 09:53) Troponin I (01/19/21 09:53) Ekg Tracing (01/19/21 09:53) Chest 1 View, Ap/Pa Only (01/19/21 09:53) Aspirin Chewable Tablet (Baby Aspirin Ch (01/20/21 09:00) Aspirin Chewable Tablet (Baby Aspirin Ch (01/19/21 09:54) Ketorolac Injection (Toradol Injection) (01/19/21 10:30) Medications Given in ED Current Medications Medications Dose Ordered Sig/Buck Route Start Time Stop Time Status Last Admin Dose Admin Ketorolac Tromethamine 15 mg ONCE ONCE IVP 01/19/21 10:30 01/19/21 10:31 DC 01/19/21 10:45 15 MG Vital Signs/I&O 01/19/21 09:33 Temp 35.0 Pulse 75 Resp 18 B/P (MAP) 152/85 (107) Pulse Ox 99 O2 Delivery Room Air Progress Progress Note : Time: 10:50 Progress Note Patient seen and examined, 60-year-old female with a chief complaint of chest pain, daughter is used as science interpreter as the patient is Bulgarian-speaking. Evaluation today includes a physical exam, CBC, BMP, cardiac enzyme profile, EKG and chest x-ray. Patient has slightly to moderately suspicious story for cardiac disease. She has risk factors of her brother with cardiac disease and dying under the age of 50 from an LA as well as a off-and-on smoking history. Her initial troponin is negative. This places her heart score at a maximum of 3. This keeps her in the low risk range for acute coronary event. She is scheduled on the for an outpatient stress test to follow-up with cardiology. Patient is treated with 324 mg of aspirin here in the emergency department as well as 15 mg of Toradol. Patient is advised on discharge to take Tylenol and/or ibuprofen as needed for pain. She is given good return precautions which are to return if the chest pain worsens or is not associated with any shortness of breath nausea or sweating. She verbalized understanding. All questions were sought and answered. Patient is stable for discharge. Initial ECG Impression Date: Jan 19, 2021 Initial ECG Impression Time: 09:39 Initial ECG Rate: 69 Initial ECG Rhythm: Normal Sinus Initial ECG Intervals: Normal Initial ECG Impression: Normal Diagnostic Imaging Diagonstic Imaging: Xray Plain Films/CT/US/NM/MRI: chest Comments [facility]. [place], [place] NAME: FAITH RIVERA [facility] REC#: [id number] PT STATUS: REG ER : 1960 PHYSICIAN: COLUMBA THOMAS MD ADMIT DATE: 01/19/21/ER Draft Date of Exam:01/19/21 CHEST 1 VIEW, AP/PA ONLY INDICATION: Chest pain EXAM: Portable chest at 10:09 AM FINDINGS: The heart size and pulmonary vascularity are normal. The lungs are clear. There are no effusions or pneumothoraces. IMPRESSION: Negative chest. Dictated on workstation # [id number] Dict: 01/19/21 1007 Trans: 01/19/21 1008 [facility] [id number] Interpreted by: MAYTE SORIANO MD Electronically signed by: Departure Impression Primary Impression: Chest pain Qualified Codes: R07.9 - Chest pain, unspecified Disposition: 01 HOME, SELF-CARE Condition: Stable Departure-Patient Inst. Decision time for Depature: 10:52 Referrals: [facility] (PCP/Family) Primary Care Physician Patient Instructions: Chest Pain That Is Not Caused by the Heart (DC) Add. Discharge Instructions: Come back to the Emergency Department if you have worsening chest pain or if you have nausea, sweating and or shortness of breath with the pain. Take a baby aspirin (81mg) daily. Try and stop smoking completely for the good of your health. Keep your appointment for your stress test. Follow up with [facility] as scheduled. COLUMBA THOMAS MD Jan 19, 2021 09:53
[2021-01-19] MEDS ORDERED: ASPIRIN 81 MG CHEW (CHILDREN'S ASA) ONE (09:54)
[2021-01-19 09:59] LABS: BASOPHILS % (AUTO) 1 % (0-10); EOSINOPHILS # (AUTO) 0.4 10^3/uL (0.0-0.3); EOSINOPHILS % (AUTO) 5 % (0-10); HEMATOCRIT 44 % (35-52); HEMOGLOBIN 14.3 g/dL (11.5-16.0); LYMPHOCYTES # (AUTO) 1.8 10^3/uL (1.0-4.0); LYMPHOCYTES % (AUTO) 22 % (12-44); MEAN CORPUSCULAR HEMOGLOBIN 29 pg (25-34); MEAN CORPUSCULAR HGB CONC 33 g/dL (32-36); MEAN CORPUSCULAR VOLUME 89 fL (80-99); MEAN PLATELET VOLUME 11.2 fL (9.0-12.2); MONOCYTES # (AUTO) 0.9 10^3/uL (0.0-1.0); MONOCYTES % (AUTO) 11 % (0-12); NEUTROPHILS % (AUTO) 62 % (42-75); PLATELET COUNT 223 10^3/uL (130-400); WHITE BLOOD COUNT 8.1 10^3/uL (4.3-11.0)
[2021-01-19 10:08] LABS: CHLORIDE 105 MMOL/L (98-107); POTASSIUM 3.8 MMOL/L (3.6-5.0); SODIUM 143 MMOL/L (135-145)
--- NOTE | 2021-01-19 10:08 | Diagnostic Imaging Report ---
INDICATION: Chest pain EXAM: Portable chest at 10:09 AM FINDINGS: The heart size and pulmonary vascularity are normal. The lungs are clear. There are no effusions or pneumothoraces. IMPRESSION: Negative chest. Dictated by: Dictated on workstation # [id number]
[2021-01-19 10:09] LABS: CALCIUM 9.5 MG/DL (8.5-10.1)
[2021-01-19 10:10] LABS: GLUCOSE 95 MG/DL (70-105)
[2021-01-19 10:11] LABS: CARBON DIOXIDE 25 MMOL/L (21-32)
[2021-01-19 10:14] LABS: CREATININE SERUM 0.78 MG/DL (0.60-1.30); GFR ESTIMATED > 60
[2021-01-19 10:15] LABS: BUN/CREATININE RATIO 9
[2021-01-19 10:16] LABS: CREATINE KINASE 216 U/L (29-168)
[2021-01-19 10:22] LABS: CREATINE KINASE MB 0.7 NG/ML (<6.6)
[2021-01-19] MEDS ORDERED: KETOROLAC 30 MG/ML VIAL IVP ONE (10:30)
[2021-01-19 11:12] VITALS: BP 137/78
[2021-01-20] MEDS ORDERED: ASPIRIN 81 MG CHEW (CHILDREN'S ASA) PO SCH (09:00)
== END 2021-01-19 11:08 | disposition home or self-care (01) ==
LOC: EDUNIT# 09:29 → ER 09:31
DX: R07.89 Other chest pain (principal); I25.10 Atherosclerotic heart disease of native coronary artery without angina pectoris; G40.909 Epilepsy, unspecified, not intractable, without status epilepticus; F32.9 Major depressive disorder, single episode, unspecified
CPT/HCPCS: 36415; 71045; 80048; 82550; 82553; 84484; 85025; 93005

== ENCOUNTER → 2021-03-06 | Outpatient (CLI) | payer OTHER ==
[2021-03-06 10:44] VITALS: BP 123/80
--- NOTE | 2021-03-06 12:12 | Cardiology Stress Test Report ---
Stress Test Report Date of Procedure/Referring: Date of Procedure: March 06, 2021 PCP Cirilo Krueger DO Admitting Physician Center/[facility] Indications: CP Baseline Heart Rate: 71 Baseline Blood Pressure: Blood Pressure Systolic: 123 Blood Pressure Diastolic: 80 Baseline EKG: Baseline EKG: NSR Summary/Conclusion: Summary: In summary, the patient started exercising with a baseline heart rate, blood pressure and EKG mentioned above Patient was able to exercise for a total of 6 minutes on Kar protocol, METs 7.3 Maximum heart rate 138 Maximum blood pressure 170/79 Stress EKG, Minimal nondiagnostic changes Recovery EKG , Return to baseline Conclusion: 1. Good exercise tolerance for a total of 6 minutes on Kar protocol, 7.3 METs, achieving 85 percent of maximum expected heart rate 2. Minimal nondiagnostic EKG changes with exercise returned to baseline during recovery 3. No arrhythmia was noted TODD ESQUEDA MD March 06, 2021 12:12
== END ==
LOC: CARD 09:41
PROVIDERS: ATTEND Pediatrics
DX: R07.89 Other chest pain (principal)
CPT/HCPCS: 93017

== ENCOUNTER 2022-03-10 10:51 | Emergency (ER) | payer SELFPAY ==
[~2022-03-10] VITALS: Ht 162 cm; Wt 70.0 kg
[~2022-03-10 10:51] MED LIST changes: -FLUO10CA31 PO; +FLUO10CA33 PO; -SULF1TAB35 PO; +SULF1TAB38 PO
[2022-03-10 11:10] VITALS: BP 138/78
--- NOTE | 2022-03-10 11:29 | ED Abdominal Pain ---
General Chief Complaint: Rect Problems Stated Complaint: RECTAL BLEEDING - FEVER Source of Information: Patient Exam Limitations: Language Barrier History of Present Illness Date Seen by Provider: March 10, 2022 Time Seen by Provider: 11:24 Initial Comments Patient is a speaking 61-year-old female presents ED with rectal bleedi ng since November. This appears to be intermittent. She has bright red blood with wiping as well with bowel movements. Difficulty obtaining history secondary to her language barrier. Corduroy Cutter Operator was used. She reports some itching around her rectum and noticed a "bump" that comes and goes. She reports some mild rectal discomfort. She noticed bright red blood with wiping. She states that she has been evaluated by her primary care physician and states this is not a hemorrhoid. She noted passing of rectal blood clots. No history of cancer, night sweats, weight loss, fever. Denies of any abdominal pain vomiting or history of constipation. Has been using Preparation H without much improvement. Patient reports normal urinary symptoms without chest pain, cough or shortness of breath. She also reports right posterior leg swelling with pain radiating down into her leg. Denies of any low back pain, trauma. No history of DVT or currently on anticoagulants. Denies of any recent travels or surgeries. Denies history of any hemia Allergies and Home Medications Allergies Coded Allergies: No Known Drug Allergies (Unverified , 06/23/18) Patient Home Medication List Home Medication List Reviewed: Yes Fluoxetine HCl (Fluoxetine HCl) 10 Mg Capsule, 10 MG PO DAILY, (Reported) Entered as Reported by: ÁNGEL ROBLES on 06/23/18 09 Hydrocodone Bit/Acetaminophen (Lortab 7.5 Mg Tablet) 1 Ea Tablet, 1 EA PO Q6H PRN for PAIN-MODERATE TO SEVERE Prescribed by: RICK BEAULIEU on 06/25/18 1255 Hydrocodone/Acetaminophen (Hydrocodone/Acetaminophen 5 MG/325 MG TAB) 1 Each Tablet, 1 EACH PO Q6H PRN for PAIN-MODERATE Prescribed by: REGINO MOISE on 07/11/18 190 Ibuprofen (Ibu) 600 Mg Tablet, 600 MG PO Q6H PRN for PAIN-MILD Prescribed by: RICK BEAULIEU on 06/25/18 1255 Simethicone (Simethicone) 80 Mg Tab.chew, 40 MG PO TID PRN for INDIGESTION Prescribed by: RICK BEAULIEU on 06/25/18 1255 Sulfamethoxazole/Trimethoprim (Bactrim Ds Tablet) 1 Each Tablet, 1 EACH PO BID Prescribed by: REGINO MOISE on 07/11/18 1902 Topiramate (Topiramate) 100 Mg Tablet, 100 MG PO HS, (Reported) Entered as Reported by: ÁNGEL ROBLES on 06/23/18 0902 Review of Systems Review of Systems Constitutional: No chills, No diaphoresis, No malaise, No weakness EENTM: No Eye Pain, No Mouth Pain, No Mouth Swelling Respiratory: Denies Cough, Denies Shortness of Air, Denies SOA at Rest Cardiovascular: Denies Chest Pain, Denies Edema Gastrointestinal: Denies Abdominal Pain, Denies Diarrhea, Denies Nausea; Rectal Bleeding Genitourinary: Denies Burning, Denies Discharge Musculoskeletal: No back pain, No joint pain Skin: No change in color, No change in hair/nails Psychiatric/Neurological: Denies Anxiety Hematologic/Lymphatic: Denies Anemia All Other Systems Reviewed Negative Unless Noted: Yes Past Cohywxo-Dcjomt-Ogonue Hx Seasonal Allergies Seasonal Allergies: No Past Medical History Surgeries: No Bladder Surgery, Hysterectomy Respiratory: No Cardiac: Yes Coronary Artery Disease, Hypotension Neurological: Yes (last seizure 3 months ago) Seizure Disorder Reproductive Disorders: Yes (genital prolapse) Genitourinary: No (genital prolapse, cystocele) Gastrointestinal: No Musculoskeletal: No Endocrine: No HEENT: No Cancer: No Psychosocial: Yes Depression Integumentary: No Blood Disorders: Yes (hx of anemia) Family Medical History Hypertension 19 MOTHER Myocardial infarction G8 BROTHER Seizure disorder G8 BROTHER Physical Exam Vital Signs Vital Signs - First Documented 03/10/22 11:10 Temp 35.2 Pulse 75 Resp 16 B/P (MAP) 138/78 (98) Pulse Ox 100 O2 Delivery Room Air Capillary Refill : Height/Weight/BMI Height: 5'5.00" Weight: 152lbs. 0.0oz. 68.447842bw; 24.00 BMI Method:Stated General Appearance: WD/WN, no apparent distress HEENT: PERRL/EOMI, normal ENT inspection, TMs normal, pharynx normal Neck: non-tender, full range of motion, supple, normal inspection Respiratory: chest non-tender, lungs clear, normal breath sounds, no respiratory distress, no accessory muscle use Cardiovascular: regular rate, rhythm, no edema, no gallop, no JVD Gastrointestinal: normal bowel sounds, non tender, soft, no organomegaly, no pulsatile mass Rectal: No decreased tone, No hemorrhoids, No tenderness Extremities: normal range of motion, no pedal edema, no calf tenderness, swelling (right posterior leg), other (Varicose veins noted to the right posterior leg. No erythema, warmth or induration. Normal active range of motion the right extremity.) Back: normal inspection, no CVA tenderness, no vertebral tenderness Neurologic/Psychiatric: can filler II-XII nml as tested, no motor/sensory deficits, alert, normal mood/affect, oriented x 3 Skin: normal color, warm/dry Progress/Results/Core Measures Results/Orders Lab Results Laboratory Tests Test 03/10/22 11:28 Range/Units White Blood Count 8.1 4.3-11.0 10^3/uL Red Blood Count 5.04 3.80-5.11 10^6/uL Hemoglobin 14.4 11.5-16.0 g/dL Hematocrit 44 35-52 % Mean Corpuscular Volume 87 80-99 fL Mean Corpuscular Hemoglobin 29 25-34 pg Mean Corpuscular Hemoglobin Concent 33 32-36 g/dL Red Cell Distribution Width 13.8 10.0-14.5 % Platelet Count 242 130-400 10^3/uL Mean Platelet Volume 11.1 9.0-12.2 fL Immature Granulocyte % (Auto) 0 % Neutrophils (%) (Auto) 45 42-75 % Lymphocytes (%) (Auto) 45 H 12-44 % Monocytes (%) (Auto) 7 0-12 % Eosinophils (%) (Auto) 2 0-10 % Basophils (%) (Auto) 1 0-10 % Neutrophils # (Auto) 3.7 1.8-7.8 10^3/uL Lymphocytes # (Auto) 3.6 1.0-4.0 10^3/uL Monocytes # (Auto) 0.6 0.0-1.0 10^3/uL Eosinophils # (Auto) 0.2 0.0-0.3 10^3/uL Basophils # (Auto) 0.0 0.0-0.1 10^3/uL Immature Granulocyte # (Auto) 0.0 0.0-0.1 10^3/uL Prothrombin Time 12.7 12.2-14.7 SEC INR Comment 0.9 0.8-1.4 Activated Partial Thromboplast Time 31 24-35 SEC Sodium Level 140 135-145 MMOL/L Potassium Level 4.0 3.6-5.0 MMOL/L Chloride Level 104 98-107 MMOL/L Carbon Dioxide Level 23 21-32 MMOL/L Anion Gap 13 5-14 MMOL/L Blood Urea Nitrogen 8 7-18 MG/DL Creatinine 0.68 0.60-1.30 MG/DL Estimat Glomerular Filtration Rate 100 BUN/Creatinine Ratio 12 Glucose Level 94 70-105 MG/DL Calcium Level 9.9 8.5-10.1 MG/DL Corrected Calcium 9.6 8.5-10.1 MG/DL Total Bilirubin 0.8 0.1-1.0 MG/DL Aspartate Amino Transf (AST/SGOT) 26 5-34 U/L Alanine Aminotransferase (ALT/SGPT) 25 0-55 U/L Alkaline Phosphatase 69 40-136 U/L Total Protein 8.0 6.4-8.2 GM/DL Albumin 4.4 3.2-4.5 GM/DL Lipase 31 8-78 U/L My Orders Orders - NELY PICHARDO Fecal Occult Bedside (03/10/22 11:02) Cbc With Automated Diff (03/10/22 11:21) Comprehensive Metabolic Panel (03/10/22 11:21) Lipase (03/10/22 11:21) Ct Abdomen/Pelvis W (03/10/22 11:21) Partial Thromboplastin Time (03/10/22 11:21) Protime With Inr (03/10/22 11:21) Iohexol Injection (Omnipaque 350 Mg/Ml 1 (03/10/22 12:00) Ns (Ivpb) (Sodium Chloride 0.9% Ivpb Bag (03/10/22 12:00) Sodium Chloride Flush (Catheter Flush Sy (03/10/22 12:00) Enoxaparin Injection (Lovenox Injection) (03/10/22 13:15) Medications Given in ED Current Medications Medications Dose Ordered Sig/Buck Route Start Time Stop Time Status Last Admin Dose Admin Enoxaparin Sodium 70 mg ONCE ONCE SC 03/10/22 13:15 03/10/22 13:16 DC 03/10/22 13:12 70 MG Iohexol 100 ml ONCE ONCE IV 03/10/22 12:00 03/10/22 12:01 DC 03/10/22 12:17 88 ML Sodium Chloride 10 ml NEEDED PRN IV 03/10/22 12:00 03/10/22 12:17 10 ML Sodium Chloride 100 ml ONCE ONCE IV 03/10/22 12:00 03/10/22 12:01 DC 03/10/22 12:17 80 ML Vital Signs/I&O 03/10/22 11:10 Temp 35.2 Pulse 75 Resp 16 B/P (MAP) 138/78 (98) Pulse Ox 100 O2 Delivery Room Air Departure Communication (PCP) Patient lab work was reassuring. Hemoccult bedside was negative. No obvious hemorrhoids noted. She states she saw her primary care physician who states her bleeding was not secondary to hemorrhoid but does have preparation and Anusol which she does report a lump around her anus. Not palpable on exam. She did show pictures of large blood clots. Due to language barrier and her current symptoms CT scan was ordered to rule out any type of infectious etiology versus mass in the abdomen. CT scan was nonspecific with right nephrolithiasis nonobstructing, fatty liver, small hiatal hernia, sacroiliitis greater on the right versus left. This was discussed with patient. She is also reports right leg pain and swelling to the posterior leg. Radiates down to the heel. She does have some enlarged varicose veins. This may be result of her pain. Outpatient ultrasound was ordered for tomorrow at 8. This was scheduled for patient. She was given dose of Lovenox here in the ER. No history of intracranial hemorrhage. She denies of any hematemesis. No obvious source of rectal bleeding at this time. Stable coags and hemoglobin. Will call results back to the ER or her primary care physician at [facility]. Recommend anti-inflammatories for the pain and discomfort. She has no lumbar back pain or pain to her hip. Appears to be more on the posterior part of her right leg. Denies of any trauma. No erythema or warmth suggesting cellulitis. Normal active range of motion. Did recommend outpatient follow-up for this rectal bleeding with surgery. May benefit with colonoscopy. Visit was limited secondary to language barrier and getting a history. If any worsening symptoms return back to ED for further evaluation Impression Primary Impression: Rectal pain Additional Impression: Leg pain Disposition: 01 HOME, SELF-CARE Condition: Stable Departure-Patient Inst. Decision time for Depature: 12:33 Referrals: [facility] [place] Primary Care Physician GURINDER JAVED MD Patient Instructions: Hemorrhoids ED Add. Discharge Instructions: Need to follow-up tomorrow for ultrasound at 8:00 of the right leg. If continued rectal bleeding recommend follow-up with surgery provided number in discharge instructions. Continue with Anusol or Preparation H All discharge instructions reviewed with patient and/or family. Voiced understanding. NELY PICHARDO March 10, 2022 11:29
[2022-03-10 11:39] LABS: BASOPHILS % (AUTO) 1 % (0-10); EOSINOPHILS # (AUTO) 0.2 10^3/uL (0.0-0.3); EOSINOPHILS % (AUTO) 2 % (0-10); HEMATOCRIT 44 % (35-52); HEMOGLOBIN 14.4 g/dL (11.5-16.0); LYMPHOCYTES # (AUTO) 3.6 10^3/uL (1.0-4.0); LYMPHOCYTES % (AUTO) 45 % (12-44); MEAN CORPUSCULAR HEMOGLOBIN 29 pg (25-34); MEAN CORPUSCULAR HGB CONC 33 g/dL (32-36); MEAN CORPUSCULAR VOLUME 87 fL (80-99); MEAN PLATELET VOLUME 11.1 fL (9.0-12.2); MONOCYTES # (AUTO) 0.6 10^3/uL (0.0-1.0); MONOCYTES % (AUTO) 7 % (0-12); NEUTROPHILS # (AUTO) 3.7 10^3/uL (1.8-7.8); NEUTROPHILS % (AUTO) 45 % (42-75); PLATELET COUNT 242 10^3/uL (130-400); WHITE BLOOD COUNT 8.1 10^3/uL (4.3-11.0)
[2022-03-10 11:47] LABS: ALBUMIN 4.4 GM/DL (3.2-4.5)
[2022-03-10 11:48] LABS: CALCIUM 9.9 MG/DL (8.5-10.1)
[2022-03-10 11:51] LABS: BILIRUBIN,TOTAL 0.8 MG/DL (0.1-1.0); INR 0.9 (0.8-1.4); PROTHROMBIN TIME PATIENT 12.7 SEC (12.2-14.7)
[2022-03-10 11:53] LABS: CREATININE SERUM 0.68 MG/DL (0.60-1.30)
[2022-03-10] MEDS ORDERED: NS 100 ML (IVPB) BAG IV ONE (12:00)
[2022-03-10] MEDS ORDERED: CATHETER FLUSH 10 ML SYR IV PRN (12:00)
[2022-03-10] MEDS ORDERED: IOHEXOL 350 MG/ML 100 ML (OMNIPAQUE 350) VIAL IV ONE (12:00)
--- NOTE | 2022-03-10 12:48 | Diagnostic Imaging Report ---
PROCEDURE: CT abdomen and pelvis with contrast. TECHNIQUE: Multiple contiguous axial images were obtained through the abdomen and pelvis after administration of intravenous contrast. Auto Exposure Controls were utilized during the CT exam to meet ALARA standards for radiation dose reduction. All CT scans use one or more of the following dose optimizing techniques: automated exposure control, MA and/or KvP adjustment based on patient size and exam type or iterative reconstruction. INDICATION: Lower abdominal pain, rectal pain COMPARISON: 07/03/2018 FINDINGS: Dependent atelectasis within the lung bases. Tiny hiatal hernia. Diffusely decreased density of the liver. Otherwise, the liver is unremarkable. The spleen is unremarkable. The adrenal glands are unremarkable. The pancreas is unremarkable. The gallbladder is unremarkable. Punctate nonobstructing calculus within the superior pole of the right kidney. Small hypodensities within the bilateral kidneys are too small to completely characterize, though not significantly changed since 2018. No evidence of hydronephrosis. Mild vascular calcifications without aneurysmal dilatation of the abdominal aorta. Small fat-containing umbilical hernia. The appendix is unremarkable. The urinary bladder is unremarkable. The uterus is not visualized, likely surgically absent. No abnormal adnexal mass lesion. Mild colonic diverticulosis without CT evidence of diverticulitis. No bowel obstruction or pneumatosis. No significant adenopathy, free air, or free fluid in abdomen or pelvis. Sclerosis about the right greater than left sacroiliac joints. Scattered osseous degenerative changes without acute osseous abnormality. IMPRESSION: Punctate nonobstructing right renal calculus. Tiny hiatal hernia. Fatty infiltration of the liver. Right greater than left sacroiliitis. Colonic diverticulosis without CT evidence of diverticulitis. Dictated by: Dictated on workstation # [id number]
[2022-03-10] MEDS ORDERED: ENOXAPARIN 80 MG/0.8 ML (LOVENOX) SYR SC ONE (13:15)
== END 2022-03-10 13:24 | disposition home or self-care (01) ==
LOC: EDUNIT# 10:51 → ER 10:53
DX: K62.89 Other specified diseases of anus and rectum (principal); I83.91 Asymptomatic varicose veins of right lower extremity
CPT/HCPCS: 36415; 74177; 80053; 82274; 83690; 85025; 85610; 85730

== ENCOUNTER → 2022-03-11 | Outpatient (CLI) | payer SELFPAY ==
--- NOTE | 2022-03-11 09:23 | Diagnostic Imaging Report ---
CLINICAL INDICATION: Patient with right leg swelling. Comparison: None Procedure: Ultrasound venous ultrasound of the right lower extremity with multiple real-time grayscale images were obtained in various projections. Additional spectral analysis and color Doppler duple images were also obtained. Findings: The deep venous system is well visualized and is easily compressible. There is no evidence of deep venous thrombosis, valvular incompetence, or significant collateral circulation. There is no fluid collection in the popliteal fossa region. Impression: There is no ultrasound Doppler evidence of deep venous thrombosis in the right lower extremity. Dictated by: Dictated on workstation # [id number]
== END ==
LOC: RAD 06:54
PROVIDERS: ATTEND Physician Assistant
DX: M79.89 Other specified soft tissue disorders (principal)

== ENCOUNTER → 2022-05-04 | Outpatient (CLI) | payer SELFPAY ==
[~2022-05-04] VITALS: Ht 157.5 cm; Wt 74.4 kg
[~2022-05-04] MED LIST changes: +DIVA-76 PO; +MOME45CR3 TP
== END ==
LOC: PREOP 08:27
PROVIDERS: ATTEND Surgery
DX: Z01.818 Encounter for other preprocedural examination (principal); Z12.11 Encounter for screening for malignant neoplasm of colon

== ENCOUNTER 2022-05-07 09:49 | Day surgery (SDC) | payer OTHER ==
[~2022-05-07] VITALS: Ht 167.6 cm; Wt 74.4 kg
[~2022-05-07 09:49] MED LIST changes: -DIVA-76 PO; -MOME45CR3 TP
[2022-05-07] MEDS ORDERED: LACTATED RINGERS 1,000 ML IV STA (09:58)
--- NOTE | 2022-05-07 10:02 | Progress Note-Pre Operative ---
Pre-Operative Progress Note H&P Reviewed The H&P was reviewed, patient examined and no changes noted. Time Seen by Provider: 10:00 Date H&P Reviewed: May 07, 2022 Time H&P Reviewed: 10:00 Pre-Operative Diagnosis: screening colonoscopy JEFFREY DUNLAP DO May 07, 2022 10:02
[2022-05-07] MEDS ORDERED: MOME45CR3 TP ×2 (10:43)
[2022-05-07] MEDS ORDERED: DIVA-76 PO ×2 (10:43)
[2022-05-07 10:45] VITALS: BP 125/63
[2022-05-07] MEDS ORDERED: PROPOFOL INJECTION 50 ML IV ONE (11:05)
--- NOTE | 2022-05-07 11:35 | Anesthesia-General Post-Op ---
MAC Patient Condition Mental Status/LOC: Same as Preop Cardiovascular: Satisfactory Nausea/Vomiting: Absent Respiratory: Satisfactory Pain: Controlled Complications: Absent Post Op Complications Complications None Follow Up Care/Instructions Patient Instructions None needed. Anesthesiology Discharge Order Discharge Order Patient is doing well, no complaints, stable vital signs, no apparent adverse anesthesia problems. No complications reported per nursing. LOUIE FERNANDO CRNA May 07, 2022 11:35
[2022-05-07 11:38] VITALS: BP 112/60
[2022-05-07 11:40] VITALS: BP 112/60
--- NOTE | 2022-05-07 11:46 | Progress Note-Post Operative ---
Post-Operative Progess Note Surgeon (s)/Perfect Binder Operator (s) Surgeon JEFFREY DUNLAP DO Perfect Binder Operator: SHOSHANA White Pre-Operative Diagnosis screening colonoscopy Post-Operative Diagnosis Polyp int hemorrhoidectomy poor prep Procedure & Operative Findings Date of Procedure 05/07/22 Procedure Performed/Findings Colonoscopy with hot bx PROCEDURE NOTE: After informed consent was obtained, the patient was brought to the endoscopy suite, placed in bed in left lateral decubitus position. She was administered IV sedation by the TECHNICAL BUSINESS ANALYST who then monitored her vitals the entire time, heart rate, blood pressure and pulse ox and the scope was inserted, pushed all the way to about 110 cm; unfortunately it was a very poor prep and found fecal material throughout and some large formed stool. Unable to see the cecum, but I think I was in the ascending colon. At this point I slowly withdrew the scope insufflating to look circumferentially at the mitchell starting in the ascending colon to the hepatic flexure, then down the transverse colon. Here I saw a small polyp and elected to remove with a hot biopsy. Conintued down to the splenic flexure, into the descending colon and down into the sigmoid and finally into the rectal vault. Retroflexed the scope and took a picture of the internal hemorrhoids. The patient tolerated the procedure. She was recovered in endoscopy suite. Recommended for repeat colonoscopy in next 2-3 months because of the poor prep. Anesthesia Type IV sedation by TECHNICAL BUSINESS ANALYST Estimated Blood Loss Estimated blood loss (mL): scant Specimens/Packing Specimens Removed transverse colon polyp JEFFREY DUNLAP DO May 07, 2022 11:46
--- NOTE | 2022-05-07 11:47 | Endoscopy Discharge Instruct ---
Endo Procedure/Findings Findings 1.: Polyp 2.: Internal Hemorrhoids 3.: Other Findings (Poor prep) Discharge Instructions - Activity: You might feel a little sleepy until tomorrow. This is due to the medicine you received to relax you. Until tomorrow, you should: NOT drive a car, operate machinery or power tools. NOT drink any alcoholic beverages. NOT make any important decisions or sign importortant papers. Do not return to work until tomorrow, unless otherwise instructed. Resume previous activities tomorrow. Diet: Start by taking liquids. If you tolerate liquids, advance to solid food. 1.: Other Recommendation (Colonoscopy in next few months because unable to clear colon) Notify Physician - If you experience excessive bleeding, unusual abdominal pain, fever, or chest pain, contact your doctor immediately. JEFFREY DUNLAP DO May 07, 2022 11:47
[2022-05-07 12:15] VITALS: BP 112/60
== END 2022-05-07 12:16 | disposition home or self-care (01) ==
LOC: ENDO 09:49
PROVIDERS: ATTEND Surgery
DX: Z12.11 Encounter for screening for malignant neoplasm of colon (principal); K63.5 Polyp of colon; K64.8 Other hemorrhoids; F17.210 Nicotine dependence, cigarettes, uncomplicated; E66.9 Obesity, unspecified; Z68.30 Body mass index [BMI] 30.0-30.9, adult
CPT/HCPCS: 88305

== ENCOUNTER 2022-09-10 07:58 | Emergency (ER) | payer OTHER ==
[~2022-09-10] VITALS: Ht 165 cm; Wt 73.4 kg
[~2022-09-10 07:58] MED LIST changes: +DIVA-76 PO; +MOME45CR3 TP
[2022-09-10 09:10] LABS: BASOPHILS % (AUTO) 0 % (0-10); EOSINOPHILS # (AUTO) 0.1 10^3/uL (0.0-0.3); EOSINOPHILS % (AUTO) 1 % (0-10); HEMATOCRIT 41 % (35-52); HEMOGLOBIN 13.4 g/dL (11.5-16.0); LYMPHOCYTES # (AUTO) 3.5 10^3/uL (1.0-4.0); LYMPHOCYTES % (AUTO) 37 % (12-44); MEAN CORPUSCULAR HEMOGLOBIN 29 pg (25-34); MEAN CORPUSCULAR HGB CONC 33 g/dL (32-36); MEAN CORPUSCULAR VOLUME 87 fL (80-99); MEAN PLATELET VOLUME 11.6 fL (9.0-12.2); MONOCYTES # (AUTO) 0.7 10^3/uL (0.0-1.0); MONOCYTES % (AUTO) 7 % (0-12); NEUTROPHILS # (AUTO) 5.1 10^3/uL (1.8-7.8); NEUTROPHILS % (AUTO) 54 % (42-75); PLATELET COUNT 235 10^3/uL (130-400); WHITE BLOOD COUNT 9.4 10^3/uL (4.3-11.0)
--- NOTE | 2022-09-10 09:11 | ED Abdominal Pain ---
General Chief Complaint: Abdominal/GI Problems Stated Complaint: ABD AND BACK PAIN Nursing Triage Note: PT PRESENTS TO ED VIA POV FROM [facility] FOR COMPLAINTS OF R SIDED ABDOMINAL PAIN SINCE YESTERDAY. PT DAUGHTER REPORTS SHE TOOK HER MOTHER TO [facility] YESTERDAY BUT HAD TO WAIT IN THE WAITING ROOM TOO LONG AND LEFT BEFORE BEING SEEN. PT REPORTS ONE EPISODE OF VOMITING YESTERDAY. PT DENIES ANY RECENT DIAHRREA OR FEVER. PT LAST HAD SOMETHING TO EAT DRINK LAST NIGHT. Source of Information: Patient, Family, Audio Visual Coordinator Exam Limitations: Language Barrier History of Present Illness Date Seen by Provider: Sep 10, 2022 Time Seen by Provider: 08:31 Initial Comments This is 62-year-old woman presents to the emergency room with complaints of right upper quadrant pain that radiates to her right lower back. Pain started yesterday. She presented to both [facility] and at [facility] in [place]. She reports waiting for up to [address] without being seen. She then went to the [facility] clinic. She made reference to suggestion that she return today for some type of imaging. Patient is Guinean-speaking only and the language line jig operator was used for the history and physical. She is accompanied by her daughter who speaks some Slovenian. Patient states pain hurts with lying flat, taking deep breaths, and moving. She reports no change in pain with eating or urination. She has not noted any hematuria or dark urine. She has no history of gallbladder disease or kidney stones. She had 1 episode of vomiting yesterday and is not nauseous now. She has not had anything to eat or drink since yesterday. She reports her pain as 6 or 7 out of 10. Her primary care provider is Dr. Campbell at [facility]. Allergies and Home Medications Allergies Coded Allergies: No Known Drug Allergies (Unverified , 06/23/18) Patient Home Medication List Home Medication List Reviewed: Yes Divalproex Sodium (Divalproex Sodium) 500 Mg Tablet.dr, 500 MG PO BID, (Reported) Entered as Reported by: BAYLEE MARIE on 05/07/22 104 Mometasone Furoate (Mometasone Furoate) 0.1 % Cream..g., 45 GM TP PRN, (Reported) Entered as Reported by: BAYLEE MARIE on 05/07/22 104 Review of Systems Review of Systems Constitutional: no symptoms reported; No fever EENTM: No Symptoms Reported Respiratory: See HPI Cardiovascular: No Symptoms Reported Gastrointestinal: See HPI Genitourinary: No Symptoms Reported Musculoskeletal: no symptoms reported Skin: no symptoms reported Psychiatric/Neurological: No Symptoms Reported Endocrine: No Symptoms Reported Hematologic/Lymphatic: No Symptoms Reported Past Xlzpptn-Chlvuz-Zpxosr Hx Patient Social History Tobacco Use?: Yes Tobacco type used: Cigarettes Smoking Status: Current Everyday Smoker Substance use?: No Alcohol Use?: No Immunizations Up To Date First/Initial COVID19 Vaccinat: 2020 Second COVID19 Vaccination To: 2020 Third COVID19 Vaccination Date: 2020 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: [employer] Seasonal Allergies Seasonal Allergies: No Past Medical History Surgery/Hospitalization HX: PMH: SEIZURES SX: HYSTERECTOMY Surgeries: Yes Bladder Surgery, Hysterectomy Respiratory: No Cardiac: Yes Coronary Artery Disease, Hypotension Neurological: Yes (last seizure 3 months ago) Seizure Disorder Reproductive Disorders: Yes (genital prolapse) Genitourinary: No (genital prolapse, cystocele) Gastrointestinal: No Musculoskeletal: No Endocrine: No HEENT: No Cancer: No Psychosocial: Yes Depression Integumentary: No Blood Disorders: Yes (hx of anemia) Family Medical History Hypertension 19 MOTHER Myocardial infarction G8 BROTHER Seizure disorder G8 BROTHER Physical Exam Vital Signs Vital Signs - First Documented 09/10/22 08:19 Temp 35.8 Pulse 71 Resp 20 B/P (MAP) 132/69 (90) Pulse Ox 100 Capillary Refill : Less Than 3 Seconds Height/Weight/BMI Height: 5'5.00" Weight: 152lbs. 0.0oz. 68.066129rc; 26.00 BMI Method:Stated General Appearance: WD/WN, mild distress HEENT: PERRL/EOMI, normal ENT inspection Neck: normal inspection Respiratory: lungs clear, normal breath sounds, no respiratory distress, no accessory muscle use Cardiovascular: regular rate, rhythm, no edema, no murmur Gastrointestinal: normal bowel sounds, soft; No distended, No guarding; tenderness (Predominantly in the right upper quadrant. Minimal tenderness elsewhere in the abdomen and sparing the left lower quadrant), other (Right upper quadrant feels redd) Extremities: normal inspection, no pedal edema Neurologic/Psychiatric: no motor/sensory deficits, alert, normal mood/affect, oriented x 3 Skin: normal color, warm/dry Progress/Results/Core Measures Results/Orders Lab Results Laboratory Tests Test 09/10/22 08:30 09/10/22 10:34 Range/Units White Blood Count 9.4 4.3-11.0 10^3/uL Red Blood Count 4.68 3.80-5.11 10^6/uL Hemoglobin 13.4 11.5-16.0 g/dL Hematocrit 41 35-52 % Mean Corpuscular Volume 87 80-99 fL Mean Corpuscular Hemoglobin 29 25-34 pg Mean Corpuscular Hemoglobin Concent 33 32-36 g/dL Red Cell Distribution Width 14.1 10.0-14.5 % Platelet Count 235 130-400 10^3/uL Mean Platelet Volume 11.6 9.0-12.2 fL Immature Granulocyte % (Auto) 0 % Neutrophils (%) (Auto) 54 42-75 % Lymphocytes (%) (Auto) 37 12-44 % Monocytes (%) (Auto) 7 0-12 % Eosinophils (%) (Auto) 1 0-10 % Basophils (%) (Auto) 0 0-10 % Neutrophils # (Auto) 5.1 1.8-7.8 10^3/uL Lymphocytes # (Auto) 3.5 1.0-4.0 10^3/uL Monocytes # (Auto) 0.7 0.0-1.0 10^3/uL Eosinophils # (Auto) 0.1 0.0-0.3 10^3/uL Basophils # (Auto) 0.0 0.0-0.1 10^3/uL Immature Granulocyte # (Auto) 0.0 0.0-0.1 10^3/uL Sodium Level 140 135-145 MMOL/L Potassium Level 4.0 3.6-5.0 MMOL/L Chloride Level 105 98-107 MMOL/L Carbon Dioxide Level 26 21-32 MMOL/L Anion Gap 9 5-14 MMOL/L Blood Urea Nitrogen 14 7-18 MG/DL Creatinine 0.70 0.60-1.30 MG/DL Estimat Glomerular Filtration Rate 99 BUN/Creatinine Ratio 20 Glucose Level 95 70-105 MG/DL Calcium Level 9.3 8.5-10.1 MG/DL Corrected Calcium 9.3 8.5-10.1 MG/DL Total Bilirubin 0.7 0.1-1.0 MG/DL Aspartate Amino Transf (AST/SGOT) 20 5-34 U/L Alanine Aminotransferase (ALT/SGPT) 14 0-55 U/L Alkaline Phosphatase 54 40-136 U/L C-Reactive Protein High Sensitivity 0.50 0.00-0.50 MG/DL Total Protein 7.3 6.4-8.2 GM/DL Albumin 4.0 3.2-4.5 GM/DL Lipase 16 8-78 U/L Urine Color YELLOW Urine Clarity CLEAR Urine pH 6.5 5-9 Urine Specific [place] 1.025 H 1.016-1.022 Urine Protein NEGATIVE NEGATIVE Urine Glucose (UA) NEGATIVE NEGATIVE Urine Ketones NEGATIVE NEGATIVE Urine Nitrite NEGATIVE NEGATIVE Urine Bilirubin NEGATIVE NEGATIVE Urine Urobilinogen 0.2 < = 1.0 MG/DL Urine Leukocyte Esterase NEGATIVE NEGATIVE Urine RBC (Auto) TRACE-I H NEGATIVE Urine RBC 0-2 /HPF Urine WBC RARE /HPF Urine Squamous Epithelial Cells 0-2 /HPF Urine Crystals NONE /LPF Urine Bacteria NEGATIVE /HPF Urine Casts NONE /LPF Urine Mucus SMALL H /LPF Urine Culture Indicated NO My Orders Orders - ZITA BURGESS MD Ua Culture If Indicated (09/10/22 08:31) Cbc With Automated Diff (09/10/22 09:03) Comprehensive Metabolic Panel (09/10/22 09:03) Hs C Reactive Protein (09/10/22 09:03) Lipase (09/10/22 09:03) Ed Iv/Invasive Line Start (09/10/22 09:03) Lactated Ringers (Lr 1000 Ml Iv Solution (09/10/22 09:15) Fentanyl Inj (Sublimaze Injection) (09/10/22 09:15) Us Gallbladder 08959 (09/10/22 09:03) Ct Abd/Pelvis Wo(Kidney Stone) (09/10/22 09:59) Ketorolac Injection (Toradol Injection) (09/10/22 12:15) Medications Given in ED Vital Signs/I&O 09/10/22 09/10/22 08:19 12:56 Temp 35.8 Pulse 71 54 Resp 20 18 B/P (MAP) 132/69 (90) 136/67 Pulse Ox 100 100 09/11/22 00:00 Intake Total 1000 ml Balance 1000 ml Blood Pressure Mean: 90 Progress Progress Note #1: Progress Note Patient was interviewed with the language line and examined. We will start our evaluation with labs, urinalysis and gallbladder ultrasound. Pain is being treated with fentanyl and she is being hydrated with IV fluids. Progress Note #2: Progress Note Pain was treated with Fentanyl and Toradol. Work-up was inconclusive. Patient was advised to seek further work-up with PCP. I suggested discussing a HIDA scan due to the significant pain in the RUQ. See discharge instructions. Diagnostic Imaging Diagonstic Imaging: Ultrasound Plain Films/CT/US/NM/MRI: abdomen Comments GB US discussed with US heat treatment technician and report reviewed. See report below: NAME: FAITH RIVERA [facility] REC#: [id number] PT STATUS: DEP ER : 1960 PHYSICIAN: ZITA BURGESS MD ADMIT DATE: 09/10/22/ER Signed Date of Exam:09/10/22 US GALLBLADDER [id number] CLINICAL INDICATION: Patient with nausea and vomiting and right upper quadrant pain. EXAM: Right upper quadrant ultrasound. COMPARISON: CT scan of abdomen and pelvis with contrast dated 03/10/2022. FINDINGS: Patient body habitus and bowel gas obscures pancreas and it is not well-visualized. Visualized portions of abdominal aorta and IVC are grossly unremarkable. Liver measures 16.2 cm. There is slight diffuse hyperechogenicity seen throughout the liver. Liver surface is smooth. The main portal vein demonstrates hepatopetal flow. There is no intrahepatic and extrahepatic ductal dilation. Common bile duct measures 5 mm. Gallbladder is unremarkable with no stones or sludge. There is no sonographic Brown sign. Right kidney measures 10.4 cm in craniocaudal dimension. There is no hydronephrosis or mass. There is no abdominal ascites. IMPRESSION: 1: Patient body habitus and overlying bowel gas limits evaluation. Pancreas unable to be evaluated on this exam. 2: There is mild diffuse hyperechogenicity seen throughout the liver which may be related to diffuse fatty infiltration. 3: There is no evidence of acute right upper quadrant abnormality seen on this exam. Dictated by: Dictated on workstation # [id number] Dict: 09/10/22 1014 Trans: 09/10/22 1841 [id number] Interpreted by: MARIANO MONTIEL MD Electronically signed by: MARIANO MONTIEL MD 09/10/22 1841 Diagonstic Imaging: CT Plain Films/CT/US/NM/MRI: abdomen, pelvis Comments CT abdomen and pelvis viewed by me and report reviewed. See report below: NAME: FAITH RIVERA REC#: [id number] PT STATUS: DEP ER : 1960 PHYSICIAN: ZITA BURGESS MD ADMIT DATE: 09/10/22/ER Signed Date of Exam:09/10/22 CT ABD/PELVIS WO(KIDNEY STONE) EXAMINATION: CT abdomen and pelvis without contrast. TECHNIQUE: Multiple contiguous axial images were obtained through the abdomen and pelvis without the use of intravenous contrast. All CT scans use one or more of the following dose optimizing techniques: automated exposure control, MA and/or KvP adjustment based on patient size and exam type or iterative reconstruction. HISTORY: Flank pain COMPARISON: 03/10/2022 FINDINGS: Limited views of the lower thorax are unremarkable. The liver is normal without focal lesion. There is no biliary ductal dilation. Gallbladder is normal. Pancreas is normal. Spleen is normal. Adrenal glands are normal. The kidneys are normal. There is no hydronephrosis. Urinary bladder is normal. There are no renal or ureteral stones. Bowel is normal in caliber without obstruction or inflammation. No free fluid or air. No abdominal or pelvic lymphadenopathy. Aorta is normal in caliber without aneurysm. There are no suspicious osseus lesions. IMPRESSION: 1. No renal or ureteral stones. Dictated by: Dictated on workstation # [id number] Dict: 09/10/22 1026 Trans: 09/10/221731 [facility] [id number] Interpreted by: YOGESH HAYES MD Electronically signed by: YOGESH HAYES MD 09/10/221731 Departure Impression Primary Impression: Right upper quadrant pain Additional Impression: Right flank pain Disposition: 01 HOME, SELF-CARE Condition: Improved Departure-Patient Inst. Decision time for Depature: 12:07 Referrals: [facility] (PCP/Family) Primary Care Physician Patient Instructions: Abdominal Pain, Adult ED, Flank Pain Add. Discharge Instructions: Adhere to a clear liquid diet for the remainder of today. Then tomorrow gradually advance your diet with small quantities of bland food as tolerated. One possible cause of your pain is gallbladder dysfunction. Because of that, you should avoid fats, increases, and oils. You may take Tylenol (acetaminophen) up to 1000 mg every 6 hours as needed for p ain. Follow-up with your primary care provider soon as possible. If you are still having symptoms, discuss the possibility of performing a hepatobiliary scan to evaluate your gallbladder function. Return to the emergency room if you are having worsening symptoms despite following these instructions. All discharge instructions reviewed with patient and/or family. Voiced understanding. Copy Copies To 1: COLT CAMPBELL JOSHUA T MD Sep 10, 2022 09:11
[2022-09-10] MEDS ORDERED: LACTATED RINGERS 1,000 ML IV ONE (09:15)
[2022-09-10] MEDS ORDERED: fentaNYL INJ 100 MCG/2 ML AMP IVP ONE (09:15)
[2022-09-10 09:29] LABS: BILIRUBIN,TOTAL 0.7 MG/DL (0.1-1.0); CALCIUM 9.3 MG/DL (8.5-10.1); CREATININE SERUM 0.7 MG/DL (0.60-1.30); TOTAL PROTEIN 7.3 GM/DL (6.4-8.2)
--- NOTE | 2022-09-10 10:25 | Diagnostic Imaging Report ---
CLINICAL INDICATION: Patient with nausea and vomiting and right upper quadrant pain. EXAM: Right upper quadrant ultrasound. COMPARISON: CT scan of abdomen and pelvis with contrast dated 03/10/2022. FINDINGS: Patient body habitus and bowel gas obscures pancreas and it is not well-visualized. Visualized portions of abdominal aorta and IVC are grossly unremarkable. Liver measures 16.2 cm. There is slight diffuse hyperechogenicity seen throughout the liver. Liver surface is smooth. The main portal vein demonstrates hepatopetal flow. There is no intrahepatic and extrahepatic ductal dilation. Common bile duct measures 5 mm. Gallbladder is unremarkable with no stones or sludge. There is no sonographic Brown sign. Right kidney measures 10.4 cm in craniocaudal dimension. There is no hydronephrosis or mass. There is no abdominal ascites. IMPRESSION: 1: Patient body habitus and overlying bowel gas limits evaluation. Pancreas unable to be evaluated on this exam. 2: There is mild diffuse hyperechogenicity seen throughout the liver which may be related to diffuse fatty infiltration. 3: There is no evidence of acute right upper quadrant abnormality seen on this exam. Dictated by: Dictated on workstation # [id number]
--- NOTE | 2022-09-10 10:29 | Diagnostic Imaging Report ---
EXAMINATION: CT abdomen and pelvis without contrast. TECHNIQUE: Multiple contiguous axial images were obtained through the abdomen and pelvis without the use of intravenous contrast. All CT scans use one or more of the following dose optimizing techniques: automated exposure control, MA and/or KvP adjustment based on patient size and exam type or iterative reconstruction. HISTORY: Flank pain COMPARISON: 03/10/2022 FINDINGS: Limited views of the lower thorax are unremarkable. The liver is normal without focal lesion. There is no biliary ductal dilation. Gallbladder is normal. Pancreas is normal. Spleen is normal. Adrenal glands are normal. The kidneys are normal. There is no hydronephrosis. Urinary bladder is normal. There are no renal or ureteral stones. Bowel is normal in caliber without obstruction or inflammation. No free fluid or air. No abdominal or pelvic lymphadenopathy. Aorta is normal in caliber without aneurysm. There are no suspicious osseus lesions. IMPRESSION: 1. No renal or ureteral stones. Dictated by: Dictated on workstation # [id number]
[2022-09-10 10:44] LABS: BILIRUBIN,URINE NEGATIVE (NEGATIVE); CLARITY,URINE CLEAR; COLOR,URINE YELLOW; GLUCOSE, URINE (UA) NEGATIVE (NEGATIVE); KETONES,URINE NEGATIVE (NEGATIVE); LEUKOCYTE ESTERASE ,URINE NEGATIVE (NEGATIVE); NITRITE,URINE NEGATIVE (NEGATIVE); PH,URINE 6.5 (5-9); PROTEIN,URINE NEGATIVE (NEGATIVE)
[2022-09-10 10:52] LABS: BACTERIA,URINE NEGATIVE /HPF; RBC,URINE 0-2 /HPF; SQUAMOUS EPITHELIAL CELL,UR 0-2 /HPF; WBC,URINE RARE /HPF
[2022-09-10] MEDS ORDERED: KETOROLAC 30 MG/ML VIAL IVP ONE (12:15)
[2022-09-10 12:56] VITALS: BP 136/67
== END 2022-09-10 12:56 | disposition home or self-care (01) ==
LOC: EDUNIT# 07:58 → ER 08:01
DX: R10.11 Right upper quadrant pain (principal); F17.210 Nicotine dependence, cigarettes, uncomplicated
CPT/HCPCS: 36415; 74176; 76705; 80053; 81000; 83690; 85025; 86141

== ENCOUNTER 2022-11-21 06:23 | Outpatient (CLI) | payer SELFPAY ==
[~2022-11-21] VITALS: Ht 167.6 cm; Wt 74.4 kg
[2022-11-26] MEDS ORDERED: LACTATED RINGERS 1,000 ML IV STA (11:50)
== END 2022-11-26 11:52 | disposition home or self-care (01) ==
LOC: PREOP 06:23
PROVIDERS: ATTEND Surgery
DX: Z01.818 Encounter for other preprocedural examination (principal)

== ENCOUNTER 2022-12-03 09:07 | Day surgery (SDC) | payer OTHER ==
[~2022-12-03] VITALS: Ht 168 cm; Wt 74.4 kg
[2022-12-03] MEDS ORDERED: LACTATED RINGERS 1,000 ML IV STA (09:25)
[2022-12-03] MEDS ORDERED: LACTATED RINGERS 1,000 ML IV ONE (09:29)
[2022-12-03 09:40] VITALS: BP 117/60
--- NOTE | 2022-12-03 10:13 | Progress Note-Pre Operative ---
Pre-Operative Progress Note Date of Available H&P: Nov 20, 2022 Date H&P Reviewed: Dec 03, 2022 Time H&P Reviewed: 10:11 History & Physical: H&P Reviewed, Patient Examed, No changes noted Pre-Operative Diagnosis: rectal bleed JEFFREY DUNLAP DO Dec 03, 2022 10:13
[2022-12-03] MEDS ORDERED: MIDAZOLAM 2 MG/2 ML (VERSED) VIAL ONE (10:35)
[2022-12-03] MEDS ORDERED: PROPOFOL INJECTION 50 ML IV ONE (10:35)
[2022-12-03 11:05] VITALS: BP 106/61
--- NOTE | 2022-12-03 11:05 | Anesthesia-General Post-Op ---
MAC Patient Condition Mental Status/LOC: Same as Preop Cardiovascular: Satisfactory Nausea/Vomiting: Absent Respiratory: Satisfactory Pain: Controlled Complications: Absent Post Op Complications Complications None Follow Up Care/Instructions Patient Instructions None needed. Anesthesiology Discharge Order Discharge Order Patient is doing well, no complaints, stable vital signs, no apparent adverse anesthesia problems. No complications reported per nursing. LOUIE FERNANDO CRNA Dec 03, 2022 11:05
--- NOTE | 2022-12-03 11:08 | Endoscopy Discharge Instruct ---
Endo Procedure/Findings Findings 1.: Other Findings (inflammation vs ulcer) 2.: Internal Hemorrhoids Discharge Instructions - Activity: You might feel a little sleepy until tomorrow. This is due to the medicine you received to relax you. Until tomorrow, you should: NOT drive a car, operate machinery or power tools. NOT drink any alcoholic beverages. NOT make any important decisions or sign importortant papers. Do not return to work until tomorrow, unless otherwise instructed. Resume previous activities tomorrow. Diet: Start by taking liquids. If you tolerate liquids, advance to solid food. 1.: Colonscopy in 10 years Notify Physician - If you experience excessive bleeding, unusual abdominal pain, fever, or chest pain, contact your doctor immediately. JEFFREY DUNLAP DO Dec 03, 2022 11:08
--- NOTE | 2022-12-03 11:08 | Progress Note-Post Operative ---
Post-Operative Progess Note Surgeon (s)/Reservoir Engineering Manager (s) Surgeon JEFFREY DUNLAP DO Reservoir Engineering Manager: Juve Ly, MSIII Pre-Operative Diagnosis rectal bleed Post-Operative Diagnosis Ulcer/inflammation int hemorrhoids Procedure & Operative Findings Date of Procedure 12/03/22 Procedure Performed/Findings Colonoscopy with cold biopsy PROCEDURE NOTE: After informed consent was obtained, the patient was brought to the endoscopy suite, placed in bed in left lateral decubitus position. She was administered IV sedation by the PRIMER SUPERVISOR who then monitored her vitals the entire time, heart rate, blood pressure and pulse ox and the scope was inserted. On the way in I saw an ulcer vs inflammation; took a picture and did a biopsy of it. Then pushed all the way to about 150 cm and pushed into the cecum, took a picture of appendiceal orifice and noted the ileocecal valve. Then slowly withdrew the scope insufflating to look circumferentially at the mitchell starting in the cecum, up the ascending colon to the hepatic flexure, then down the transverse colon, splenic flexure, into the descending colon down in the sigmoid and then into the rectal vault and retroflexed the scope. Took picture of the internal hemorrhoids. The patient tolerated the procedure. She was recovered in endoscopy suite. Recommended for repeat colonoscopy in 10 years. Anesthesia Type IV sedation by PRIMER SUPERVISOR Estimated Blood Loss Estimated blood loss (mL): scant Specimens/Packing Specimens Removed desc colon bx JEFFREY DUNLAP DO Dec 03, 2022 11:08
[2022-12-03 11:10] VITALS: BP 103/59
[2022-12-03 11:15] VITALS: BP 112/63
[2022-12-03 11:35] VITALS: BP 118/60
[2022-12-03 11:41] VITALS: BP 118/60
== END 2022-12-03 11:41 | disposition home or self-care (01) ==
LOC: ENDO 09:07
PROVIDERS: ATTEND Surgery
DX: K52.9 Noninfective gastroenteritis and colitis, unspecified (principal); K64.0 First degree hemorrhoids; F17.210 Nicotine dependence, cigarettes, uncomplicated; E66.9 Obesity, unspecified; Z68.26 Body mass index [BMI] 26.0-26.9, adult
CPT/HCPCS: 88305